=== PATIENT | female | born 2000 | race Hispanic/Latino ===

== ENCOUNTER 2018-01-07 12:01 | Emergency (ER) | payer OTHER, SELFPAY ==
[2018-01-07 12:43] LABS: Absolute Lymphocytes (CBC) 1.4 K/uL (0.7-4.9); Absolute Monocytes 0.4 K/uL (0.1-1.3); Absolute Neutrophil 6.2 K/uL (1.8-8.0); Basophils % 0.2 % (0-1.3); Eosinophils % 0.2 % (0-4.4); Hematocrit 37.6 % (36.0-45.0); Lymphocytes % 17.5 % (15.3-44.8); MCH 27.8 pg (27.0-35.0); MCV 81.2 fL (80-100); MPV 8.9 fL (7.6-11.3); Monocytes % 4.4 % (3.3-12.3); RBC Red Blood Cell Count 4.63 M/uL (3.86-4.86)
[2018-01-07 12:57] LABS: Bicarbonate 22 mEq/L (21-31); Glucose Level 95 mg/dL (65-120); Potassium 3.6 mEq/L (3.6-5.0); Sodium Level 132 mEq/L (135-145)
[2018-01-07 12:58] LABS: BUN Blood Urea Nitrogen 12 mg/dL (6-20)
[2018-01-07 13:23] LABS: Urine Blood NEGATIVE (NEG); Urine Glucose NEGATIVE (NEG); Urine Protein 2+ (NEG); Urine Specific Gravity 1.025 (1.005-1.030)
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
--- NOTE | 2018-01-07 14:31 | RAD REPORT ---
EXAM DESCRIPTION: US - Transvaginal OB - 01/07/2018 2:16 pm CLINICAL HISTORY: with abdominal pain and vaginal bleeding COMPARISON: None. FINDINGS: The uterus is measures 11 x 6 x 9 centimeters. A gestational sac is present within the e ndometrium. Within this is a yolk sac and pole with a crown-rump length 1.7 centimeters. Cardia c activity 165 beats per minute The ovaries are normal in size and echotexture. No significant free fluid is seen. IMPRESSION: Single live intrauterine with an estimated gestational age 8 weeks 0 days
[2018-01-07 14:38] VITALS: TEMP 97.9
[2018-01-07 14:40] VITALS: BP 110/73; O2SAT 100
== END 2018-01-07 14:33 | disposition home or self-care (01) ==
LOC: ER 12:01
DX: O26.891 Other specified pregnancy related conditions, first trimester (principal); Z3A.08 8 weeks gestation of pregnancy
CPT/HCPCS: 36415; 76817; 80048; 81003; 81025; 84702; 85025; 86900; 86901; 99284

== ENCOUNTER 2018-02-02 17:22 | Emergency (ER) | payer SELFPAY ==
[2018-02-02] MEDS ORDERED: ACT CHARCOAL/SORB 50 GM/240ML ONE ×2 (17:25→17:38)
[2018-02-02] MEDS ORDERED: NA CHLORIDE 0.9% 1,000 ML ONE ×2 (17:34→20:36)
[2018-02-02 17:57] LABS: Absolute Lymphocytes (CBC) 1.4 K/uL (0.7-4.9); Absolute Monocytes 0.4 K/uL (0.1-1.3); Basophils % 0.2 % (0-1.3); Eosinophils % 0.2 % (0-4.4); Lymphocytes % 12.9 % (15.3-44.8); MCH 28.9 pg (27.0-35.0); MCV 82.6 fL (80-100); MPV 8.7 fL (7.6-11.3); Monocytes % 3.8 % (3.3-12.3); RBC Red Blood Cell Count 4.24 M/uL (3.86-4.86)
--- NOTE | 2018-02-02 17:59 | EKG ---
Test Date: 2018-02-02 Test Time: 17:52:56 Auto Carrier Driver: ROSSI MEASUREMENT RESULTS: Intervals: Rate: 96 NV: 148 QRSD: 88 QT: 364 QTc: 459 Gore: P: 51 NV: 148 QRS: 47 T: 28 INTERPRETIVE STATEMENTS: Normal sinus rhythm Normal ECG Compared to ECG 01/19/2012 12:18:02 No significant changes Electronically Signed On 02-02-18 17:57:58 CDT by Yordy Cody
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
[2018-02-02 18:06] LABS: Protime INR 1.03
[2018-02-02 18:15] LABS: Bicarbonate 18 mEq/L (21-31); Glucose Level 94 mg/dL (65-120); Potassium 3.6 mEq/L (3.6-5.0); Sodium Level 133 mEq/L (135-145)
[2018-02-02 18:23] LABS: ALT/SGPT 18 IU/L (10-60); AST/SGOT 13 IU/L (10-42); Albumin 3.9 g/dL (3.2-5.5); Alkaline Phosphatase 47 IU/L (42-121); BUN Blood Urea Nitrogen 7 mg/dL (6-20); Bilirubin Direct 0.1 mg/dL (0-0.2); Bilirubin Total 0.6 mg/dL (0.3-1.2); Protein, Total 7.2 g/dL (6.0-8.3)
[2018-02-02 18:30] LABS: Salicylates Level < 4.0 mg/dl (<30)
[2018-02-02] MEDS ORDERED: LICE TREATMENT 1 APPL/120 ML BTL TOP ONE (18:30)
[2018-02-02 18:38] LABS: Alcohol Serum/Plasma < 10 mg/dl
[2018-02-02 19:00] LABS: Urine Blood NEGATIVE (NEG); Urine Glucose NEGATIVE (NEG); Urine Protein 1+ (NEG); Urine Specific Gravity 1.025 (1.005-1.030)
[2018-02-02] MEDS ORDERED: D5W IV ONE (19:00)
[2018-02-02] MEDS ORDERED: ACETYLCYSTEINE IV ONE ×2 (19:00→20:00)
[2018-02-02 19:01] LABS: Barbiturates NEGATIVE; Benzodiazepines NEGATIVE; Cocaine NEGATIVE; METHAMPHETAM NEGATIVE; Opiates NEGATIVE; Phencyclidine NEGATIVE; THC Cannibis POSITIVE
[2018-02-02] MEDS ORDERED: DEXTROSE 5% IV ONE (20:00)
[2018-02-02] MEDS ORDERED: WATER IV ONE (20:00)
--- NOTE | 2018-02-02 20:36 | RAD REPORT ---
EXAM DESCRIPTION: US - 1St Trimest Single 1St Fetus - 02/02/2018 7:13 pm CLINICAL HISTORY: with abdominal pain COMPARISON: None FINDINGS: The uterus measures 15 x 9 x 11 centimeters. A pole is present within the uterus with a crown-rump length 5.1 centimeters. Cardiac activity 150 beats per minute. The placenta is posterior. Initial images demonstrate a probable myometrial contraction. Partial plac enta previa is present. A 13 millimeter subchorionic bleed is suspected. IMPRESSION: Single live intrauterine with an estimated gestational age 11 weeks 5 days JANET 08/19/2018 Partial placenta previa. 13 millimeter subchorionic bleed is suspected. Follow-up ultrasound in approximately 6 weeks is recommended to reassess the placenta and perform a f etal survey
[2018-02-02 22:10] VITALS: TEMP 98.3
[2018-02-02 22:12] VITALS: BP 117/82; O2SAT 100
[2018-02-03] MEDS ORDERED: ACETYLCYSTEINE IV SCH (01:00)
[2018-02-03] MEDS ORDERED: D5W IV SCH (01:00)
== END 2018-02-02 22:05 | disposition short-term general hospital (02) ==
LOC: ER 17:22 → ERHOLD 18:21 → UNDOADMIN 18:21 → ER 22:05
DX: O9A.211 Injury, poisoning and certain other consequences of external causes complicating pregnancy, first trimester (principal); T39.1X2A Poisoning by 4-Aminophenol derivatives, intentional self-harm, initial encounter; Y92.9 Unspecified place or not applicable; O99.341 Other mental disorders complicating pregnancy, first trimester; F32.9 Major depressive disorder, single episode, unspecified; Z3A.11 11 weeks gestation of pregnancy
CPT/HCPCS: 36415; 76801; 80048; 80076; 80307; 80320; 80329; 81003; 81025; 84702; 85025; 85610; 86900; 86901; 93005; 96360; 96361; 99285; J0132; J7030; J7060

== ENCOUNTER 2019-12-17 03:45 | Emergency (ER) | payer OTHER, SELFPAY ==
[2019-12-17] MEDS ORDERED: NA CHLORIDE 0.9% 1,000 ML ONE ×2 (04:26→05:14)
[2019-12-17 04:34] LABS: Absolute Lymphocytes (CBC) 3.3 K/uL (0.7-4.9); Basophils % 0.5 % (0-1.3); Hematocrit 38.5 % (36.0-45.0); Lymphocytes % 36.4 % (15.3-44.8); MPV 8.9 fL (7.6-11.3); RBC Red Blood Cell Count 4.64 M/uL (3.86-4.86)
[2019-12-17 04:40] LABS: Urine Blood TRACE (NEG); Urine Glucose NEGATIVE (NEG); Urine Protein TRACE (NEG); Urine Specific Gravity >1.030 (1.005-1.030); Urine pH 5.5 (5.0-7.0)
[2019-12-17 04:45] LABS: Barbiturates NEGATIVE (NEGATIVE); Benzodiazepines NEGATIVE (NEGATIVE); Cocaine POSITIVE (NEGATIVE); METHAMPHETAM NEGATIVE (NEGATIVE); Methadone NEGATIVE (NEGATIVE); Opiates NEGATIVE (NEGATIVE); Phencyclidine NEGATIVE (NEGATIVE); THC Cannibis POSITIVE (NEGATIVE)
[2019-12-17 04:46] LABS: Protime INR 0.91
[2019-12-17 04:56] LABS: ALT/SGPT 47 U/L (12-78); AST/SGOT 13 U/L (15-37); Albumin 3.9 g/dL (3.4-5.0); Alkaline Phosphatase 78 U/L (45-117); BUN Blood Urea Nitrogen 13 mg/dL (7-18); Bicarbonate 25 mmol/L (21-32); Bilirubin Direct < 0.1 mg/dL (0-0.2); Bilirubin Total 0.2 mg/dL (0.2-1.0); Glucose Level 109 mg/dL (74-106); Potassium 3.9 mmol/L (3.5-5.1); Protein, Total 7.4 g/dL (6.4-8.2); Sodium Level 141 mmol/L (136-145)
[2019-12-17] MEDS ORDERED: LORAZEPAM 1 MG TABLET ONE (06:05)
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
--- NOTE | 2019-12-17 06:35 | ER ---
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 I ate brownies at the bar they said there's weed on it about 2 hours ago. 03:55 Coronavirus screen: The patient has NOT traveled to a country currently being monitored rr5 by the [facility] within the last 14 days. Proceed with normal triage procedures. Ebola Screen: Patient negative for fever greater than or equal to 101.5 degrees Fahrenheit, and additional compatible Ebola Virus Disease symptoms Patient denies exposure to infectious person. Patient denies travel to an Ebola-affected area in the 21 days before illness onset. Initial Sepsis Screen: Does the patient meet any 2 criteria? No. Patient's initial sepsis screen is negative. Does the patient have a suspected source of infection? No. Patient's initial sepsis screen is negative. Risk Assessment: Do you want to hurt yourself or someone else? Patient reports no desire to harm self or others. Onset of symptoms was December 17, 2019 at 02:00. 03:55 Method Of Arrival: Wheelchair rr5 03:55 Acuity: GAY 3 rr5 03:55 Note i ate brownies with weeds before but this one is different stated by the patient. 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 - Social history:: Smoking status: unknown Patient uses alcohol, Patient/guardian denies using street drugs. Screenin:15 Abuse screen: Denies threats or abuse. Denies injuries from another. Nutritional rr5 screening: No deficits noted. Tuberculosis screening: No symptoms or risk factors identified. Fall Risk IV access (20 points). Gait- Impaired (20 pts.). Total Steen Fall Scale indicates Low Risk Score (25-44 pts). Fall prevention measures have been instituted. Side Rails Up X 2 Placed close to Nursing Station Frequent Obs/Assesments occuring As available Patient and Family Educated on Fall Prevention Program and strategies. Assessment: 04:00 General: Appears in no apparent distress. uncomfortable, Behavior is cooperative, rr5 drowsy. Pain: Denies pain. Neuro: Level of Consciousness is awake, Oriented to person, place, time, situation, Reports i feel weird. 04:00 Cardiovascular: Capillary refill < 3 seconds Patient's skin is warm and dry. rr5 Cardiovascular: Rhythm is sinus tachycardia. Respiratory: Airway is patent Respiratory effort is even, unlabored, Respiratory pattern is regular. GI: No signs and/or symptoms were reported involving the gastrointestinal system. : No signs and/or symptoms were reported regarding the genitourinary system. EENT: Sclera/Cornea are reddened in outer aspect of conjuctiva of right eye, inner aspect of conjuctiva of right eye, outer aspect of conjuctiva of left eye and inner aspect of conjunctiva of left eye. Derm: Skin is intact, is healthy with good turgor, Skin temperature is warm. Musculoskeletal: Circulation, motion, and sensation intact. Capillary refill < 3 seconds. 05:13 Reassessment: Patient appears in no apparent distress at this time. BP 89/53 mmHg rr5 rechecked, ED provider aware with order made and carried out. photoresist contact printer number [facility] [phone]. 06:00 Reassessment: Patient appears in no apparent distress at this time. Patient and/or rr5 family updated on plan of care and expected duration. Pain level reassessed. Patient is alert, oriented x 3, equal unlabored respirations, skin warm/dry/pink. ED provider order for discharge once HR range 110 bpm. 06:28 Reassessment: Patient appears in no apparent distress at this time. Patient and/or rr5 family updated on plan of care and expected duration. Pain level reassessed. Patient is alert, oriented x 3, equal unlabored respirations, skin warm/dry/pink. call made to [facility] to arrange transport he replied he is on the way. 06:46 Reassessment: Patient appears in no apparent distress at this time. Patient is alert, rr5 oriented x 3, equal unlabored respirations, skin warm/dry/pink. commission auditor came, discharge instruction given and explained without complaints made. Vital Signs: 03:55 BP 119 / 67; Pulse 112; Resp 19; Temp 97.8; Pulse Ox 99% ; Weight 79.38 kg; Height 5 rr5 ft. 5 in. (165.10 cm); Pain 0/10; 04:42 BP 95 / 56; Pulse 91; Resp 16; Pulse Ox 99% on R/A; rr5 05:12 BP 89 / 53; Pulse 135; Resp 18; Temp 98; Pulse Ox 99% on R/A; rr5 05:23 BP 96 / 76; Pulse 113; Resp 17; Pulse Ox 99% on R/A; rr5 06:00 BP 121 / 79; Pulse 117; Resp 19; Pulse Ox 99% on R/A; rr5 06:25 BP 122 / 77; Pulse 95; Resp 16; Temp 97.5; Pulse Ox 100% ; rr5 03:55 Body Mass Index 29.12 (79.38 kg, 165.10 cm) rr5 ED Course: 03:48 Patient arrived in ED. es 03:57 Davonte Kruse, RN is Primary Nurse. rr5 04:00 Patient has correct armband on for positive identification. Placed in gown. Bed in low rr5 position. Call light in reach. Side rails up X2. telemetry monitor on. Pulse ox on. NIBP on. Warm blanket given. 04:02 Triage completed. rr5 04:02 Arm band placed on right wrist. EKG completed in triage. Results shown to MD. rr5 04:05 Quentin Hughes MD is Attending Physician. tw4 04:15 Urine collected: clean catch specimen, clear. rr5 04:20 No provider procedures requiring assistance completed. Inserted saline lock: 20 gauge rr5 in right forearm, using aseptic technique. Blood collected. 04:28 EKG done, by ED staff, reviewed by Quentin Hughes MD. rr5 06:47 IV discontinued, intact, bleeding controlled, No redness/swelling at site. Pressure rr5 dressing applied. Administered Medications: 04:20 Drug: NS 0.9% 1000 ml Route: IV; Rate: 1 bolus; Site: right antecubital; rr5 05:15 Follow up: Response: No adverse reaction; IV Status: Completed infusion; IV Intake: rr5 1000ml 06:04 Follow up: Response: No adverse reaction; IV Status: Completed infusion; IV Intake: rr5 1000ml 05:15 Drug: NS 0.9% 1000 ml Route: IV; Rate: 1 bolus; Site: right antecubital; rr5 06:15 Follow up: Response: No adverse reaction; IV Status: Completed infusion; IV Intake: rr5 1000ml 06:03 Drug: Ativan 1 mg Route: PO; rr5 06:48 Follow up: Response: No adverse reaction rr5 Intake: 05:15 IV: 1000ml; Total: 1000ml. rr5 06:04 IV: 1000ml; Total: 2000ml. rr5 06:15 IV: 1000ml; Total: 3000ml. rr5 06:04 voided rr5 Output: 06:04 Other: 1; Total: 0ml. rr5 06:04 voided rr5 Outcome: 06:35 Discharge ordered by . tw4 06:47 Discharged to home ambulatory, with family. rr5 06:47 Condition: stable 06:47 Discharge instructions given to patient, family, Instructed on discharge instructions, follow up and referral plans. Demonstrated understanding of instructions, follow-up care. 06:49 Patient left the ED. rr5 Signatures: Nathalie Fonseca Terrence, MD MD tw4 Davonte Kruse RN RN rr5 Corrections: (The following items were deleted from the chart) 06:39 06:25 BP 122 / 77; Pulse 95bpm; Resp 16bpm; Pulse Ox 100%; rr5 rr5
[2019-12-17 07:05] VITALS: BP 122/77; TEMP 97.5; O2SAT 100
--- NOTE | 2019-12-18 06:56 | EKG ---
Test Date: 2019-12-17 Test Time: 04:16:31 Wardrobe Stylist: RR MEASUREMENT RESULTS: Intervals: Rate: 112 MN: 150 QRSD: 84 QT: 322 QTc: 439 Imperial: P: 48 MN: 150 QRS: 54 T: -1 INTERPRETIVE STATEMENTS: Sinus tachycardia Cannot rule out Inferior infarct, age undetermined Abnormal ECG Compared to ECG 02/02/2018 17:52:56 Myocardial infarct finding now present Sinus rhythm no longer present Electronically Signed On 12-18-19 06:54:57 CDT by Doroteo Mcclelland
== END 2019-12-17 06:49 | disposition home or self-care (01) ==
LOC: ER 03:45
DX: F14.121 Cocaine abuse with intoxication with delirium (principal); F14.122 Cocaine abuse with intoxication with perceptual disturbance; F12.122 Cannabis abuse with intoxication with perceptual disturbance; R00.0 Tachycardia, unspecified
CPT/HCPCS: 96361; 93005; 85025; 80048; 36415; 80320; 80329 ×2; 81025; 85610; 80076; 80307 ×8; 85730; 81003; 96360; 99284; J7030 ×2

== ENCOUNTER 2020-01-07 03:33 | Emergency (ER) | payer OTHER ==
--- OUTSIDE RECORDS SUMMARY | 2020-01-07 03:36 | XMS REPORT ---
:2000 [facility] Address [facility] Dr. Cervantes [address] [place] [id number] Care Team Providers Name Role Phone Unavailable Unavailable Unavailable Problems This patient has no known problems. Allergies, Adverse Reactions, Alerts This patient has no known allergies or adverse reactions. Medications This patient has no known medications.
--- OUTSIDE RECORDS SUMMARY | 2020-01-07 03:37 | XMS REPORT | Summary of Care ---
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 CONTROL Encounter Details Date Type Department Care Team Description 12/22/2019 Office Visit [facility]- Mary Dacosta, Encounter for Nexplanon removal (Primary Dx); [facility] Encounter for initial prescription of injectable contraceptive [address] [place], [place] [address] [place], [place] [address] Allergies No Known Allergiesdocumented as of this encounter (statuses as of 12/22/2019) Medications Hospital, Clinic, or Other Ordered Dose Route Frequency Start Date End Date Status Facility Administered Medication medroxyPROGESTERone 150 mg IM [id number] 12/22/2019 08/30/2020 Active (DEPO-PROVERA) injection 150 mgIndications: Encounter for initial prescription of injectable contraceptive documented as of this encounter (statuses as of 12/22/2019) Active Problems Problem Noted Date Multiparity 01/01/2016 Family history of Down syndrome 01/01/2016 Overview: Patient sister has down syndrome History of asthma 01/01/2016 Overview: As a child History of seizure 01/01/2016 Overview: As a child <10yrs ago documented as of this encounter (statuses as of 12/22/2019) Resolved Problems Problem Noted Date Resolved Date 39 weeks gestation of 08/09/2018 12/30/2018 Insufficient care in third trimester 08/09/2018 12/30/2018 Group B Streptococcus carrier, antepartum 08/09/2018 12/30/2018 Liveborn , of [place] , born in hospital by 08/09/201812/30 vaginal delivery Late care 07/11/2018 08/09/2018 Abnormal maternal glucose tolerance, antepartum 06/16/2018 08/09/2018 Placenta previa without hemorrhage, antepartum 06/15/2018 08/09/2018 Inmate in correctional facility 06/15/2018 08/09/2018 Overweight (BMI 25.0-29.9) 06/15/2018 08/09/2018 Overdose by acetaminophen, intentional self-harm, sequela 02/03/20182017 Suicide attempt 02/03/2018 06/15/2018 Lice 02/03/2018 06/15/2018 12 weeks gestation of 02/03/2018 06/15/2018 Obesity (BMI 30-39.9) 09/21/2017 06/15/2018 Normal labor 04/02/2016 12/30/2018 39 weeks gestation of 04/02/2016 06/15/2018 Group B Streptococcus carrier, antepartum 04/02/2016 03/10/2017 Liveborn by vaginal delivery 04/02/2016 06/15/2018 Susceptible to varicella (non-immune), currently 01/02/20162017 Overview: needs PP Supervision of high-risk with insufficient 01/01/201609/2018 care Obesity affecting 01/01/2016 12/30/2018 Pain of round ligament affecting , antepartum 01/01/2016 06/15/2018 documented as of this encounter (statuses as of 12/22/2019) Immunizations Name Administration Dates Next Due Influenza Virus Vaccine Quad IM 3+ YRS 01/01/2016 PPD (TB) 10/21/2011 Tdap 02/07/2016 documented as of this encounter Social History Tobacco Use Types Packs/Day Years Used Date Never Smoker Smokeless Tobacco: Never Used Alcohol Use Drinks/Week oz/Week Comments No 0 Standard drinks or equivalent 0.0 Sex Assigned at Date Recorded Not on file Job Start Date Occupation Industry Not on file Not on file Not on file Travel History Travel Start Travel End No recent travel history available. documented as of this encounter Last Filed Vital Signs Vital Sign Reading Time Taken Comments Blood Pressure 111/68 12/22/2019 2:47 PM CDT Pulse 68 12/22/2019 2:47 PM CDT Temperature 36.8 C (98.2 F) 12/22/2019 2:47 PM CDT Respiratory Rate 16 12/22/2019 2:47 PM CDT Oxygen Saturation - - Inhaled Oxygen Concentration - - Weight 81 kg (178 lb 8 oz) 12/22/2019 2:47 PM CDT Height 165.1 cm (5' 5") 12/22/2019 2:47 PM CDT Body Mass Index 29.7 12/22/2019 2:47 PM CDT documented in this encounter Progress Notes Keya Serrano RN - 12/22/2019 3:00 PM CDTPatient present in clinic for nexplanon removal. Consent obtained and signed by patient. Educated patient on ER warnings. Patient verbalized understanding. Patient desires Depo contraception management at this time. Keya Aguilar RN - 12/22/2019 3:00 PM CDT19 year old female has been identified by and name. Verbal consent has been obtained by patientto have an injection of Depo Provera, as ordered by the provider. Date of last Depo Provera injection: initial Last WWE: 01/20/2019 Encounter Diagnosis: v25.49 The site was cleaned with an alcohol swab and given intramuscularly (IM) in the right deltoid. A band aid dressing was then applied to the injection site. The patient tolerated the procedure well , no rash, swelling or reaction noted. Advised patient on Calcium intake 500-1200 mg daily. Pt to use back up control method for 2 weeks. ED warnings given. Patient to return to clinic in 12 weeks for next Depo and WWE. Patient verbalized understanding. KEYA SERRANO RN 12/22/2019 3:12 PM Mary Gustafson FNP - 12/22/2019 3:00 PM CDTNexplanon REMOVAL PROCEDURE NOTE Pt desires Nexplanon removal d/t having periods for 2 weeks every month and breakthrough bleeding. She declines trial of estradiol and requests nexplanon removal. Plans to use depo for contraception Preoperative Diagnoses: Nexplanon Removal I discussed the likelihood of success with Nexplanon removal procedure during the consent process with the patient. Staff present for procedure: Mario NOVAK and Adama Serrano RN Pt reports no past or present history of physical, sexual, and emotional abuse. The risks, benefits and alternatives were discussed. The patient voiced her understanding. She wished to proceed and an informed consent was obtained. Patient has been identified by name and and will be undergoing Nexplanon removal. Patient is right handed. Patient, procedure and site have been confirmed by the following clinicians: Mario King and Adama Serrano RN. Timeout performed by Mario NOVAK and Adama Serrano RN immediately prior to the procedure. Procedure: The patient is placed on the exam table in a supine position. The implant was palpated onthe inner aspect of the left arm. The Nexplanon implant site is prepped with Betadine. Local area isinjected subcutaneously with 2 cc of lidocaine 1% without epinephrine along the planned incision site. A small incision is made with a sterile scalpel. Straight hemostat is used to access the implant through the incision site. The implant is secured with the hemostat and carefully removed through theincision. There is minimal bleeding from the incision site. Sterile gauze and a pressure dressing is placed over the removal site. The patient tolerated the procedure well and there were no complications. Post-procedure instructions given. Patient verbalized understanding. Staff present for procedure: RAYMOND Mina and Adama Serrano RN. Findings None Assessment Nexplanon Removed Plan Encounter for Nexplanon removal (primary encounter diagnosis) Comment: Plan: Encounter for initial prescription of injectable contraceptive Comment: D/w pt at length various BCMs including OCPs, Patch, Depo Provera, vaginal rings, condoms, implants and iuds. We discussed the risk/benefits/side effects of each. After discussion, pt desires to proceed with depo. UPT negative today, depo given Plan: POCT TEST, medroxyPROGESTERone (DEPO-PROVERA) injection 150 mg RTC in 3 months for 2nd depo injection and WWE Patient visualized removed Nexplanon. documented in this encounter Plan of Treatment Date Type Specialty Care Team Description 03/25/2020 Office Visit [facility] Eliza [facility], [facility] [address] [place] [address] [phone] Health Maintenance Due Date Last Done Comments CHLAMYDIA SCREENING 01/21/2020 01/20/2019, 06/15/2018, 01/01/2016, Additional history exists HPV VACCINES (1 - Female 02/01/2020 Postponed from 2-dose series) 2009 (Refused) PAP SMEAR 02/01/2020 Postponed from 2019 (Refused) INFLUENZA VACCINE (#1) 2020 01/01/2016 Postponed from 06/04/2019 (Refused) DTaP,Tdap,and Td Vaccines 02/06/2026 02/07/2016 (2 - Td) MENINGOCOCCAL B VACCINES Discontinued MENINGOCOCCAL VACCINE Aged Out No longer eligible based on patient's age to complete this topic PNEUMOCOCCAL 0-64 YEARS Aged Out No longer eligible COMBINED SERIES based on patient's age to complete this topic VARICELLA VACCINES Discontinued [facility] CARE VISIT: 12-21 Discontinued YEARS (yearly) documented as of this encounter Procedures Procedure Name Priority Date/Time Associated Diagnosis Comments POCT Routine 12/22/2019 2:54 Encounter for initial Results for this TEST PM CDT prescription of procedure are in injectable the results contraceptive section. documented in this encounter Results POCT TEST (12/22/2019 2:54 PM CDT) POCT PREG Negative On board controls acceptable Yes with C Line POCT PREG LOT # POCT PREG TEST DATE Specimen Urine - URINE, CLEAN CATCH documented in this encounter Visit Diagnoses Diagnosis Encounter for Nexplanon removal - Primary Surveillance of previously prescribed implantable subdermal contraceptive Encounter for initial prescription of injectable contraceptive General counseling for initiation of other contraceptive measures documented in this encounter Administered Medications Medication Order MAR Action Action Date Dose Rate Site medroxyPROGESTERone Given 12/22/2019 3:12 150 mg Right (DEPO-PROVERA) injection 150 PM CDT Deltoid-IM mg 150 mg, Intramuscular, [id number], 3 doses, First dose on Wed12/22/19 at 1500, Last dose on Wed06/07/20 at 1500, Routine documented in this encounter Insurance Payer Benefit Plan / Subscriber ID Effective Phone Address Type Group Dates [facility] xxxxxxxxx 2019-Matthieu [place] Medicaid HEALTH CHOICE - HEALTH CHOICE [id number] MANAGED MEDICAID [place], [place] [phone] documented as of this encounter Advance Directives Name Relationship Healthcare Agent Relationship Communication Lou Onofre Mother Primary healthcare agent
--- OUTSIDE RECORDS SUMMARY | 2020-01-07 03:37 | XMS REPORT | Summary of Care ---
:2000 Author Organization [facility] Address [address] [place] [address] Care Team Providers Name Role Phone Mary Dacosta [employer] Primary Care Provider Reason for Visit Reason Comments Appointment b/c removal Encounter Details Date Type Department Care Team Description 12/15/2019 Telephone [facility]- Mary Dacosta, Appointment [facility] ) [address] [place], [place] [address] [place] [address] [phone] Allergies No Known Allergiesdocumented as of this encounter (statuses as of 12/15/2019) Medications No known medicationsdocumented as of this encounter (statuses as of 12/15/2019) Active Problems Problem Noted Date Multiparity 01/01/2016 Family history of Down syndrome 01/01/2016 Overview: Patient sister has down syndrome History of asthma 01/01/2016 Overview: As a child History of seizure 01/01/2016 Overview: As a child <10yrs ago documented as of this encounter (statuses as of 12/15/2019) Resolved Problems Problem Noted Date Resolved Date [...] B Streptococcus carrier, antepartum 04/02/2016 03/10/2017 Liveborn infant by vaginal delivery 04/02/2016 06/15/2018 Susceptible to varicella (non-immune), currently 01/02/20162017 Overview: needs PP Supervision of high-risk with insufficient 01/01/201609/2018 care Obesity affecting 01/01/2016 12/30/2018 Pain of round ligament affecting , antepartum 01/01/2016 06/15/2018 documented as of this encounter (statuses as of 12/15/2019) Immunizations Name Administration Dates Next Due Influenza [...] of this encounter Last Filed Vital Signs Not on filedocumented in this encounter Plan of Treatment Date Type Specialty Care Team Description 12/22/2019 Office Visit [facility] Mary Dacosta, [employer]FIREMAN [address] [place] [address] [phone] Health Maintenance Due Date Last Done Comments VARICELLA VACCINES (1 of 2 - 1999 2-dose childhood series) MENINGOCOCCAL B VACCINES (1 2008 of 2 - Risk Bexsero 2-dose series) HPV VACCINES (1 - Female 2009 2-dose series) WELL CARE VISIT: 12-21 YEARS 2010 (yearly) INFLUENZA VACCINE (#1) 2019 01/01/2016 PAP SMEAR 2019 CHLAMYDIA SCREENING 01/21/2020 01/20/2019, 06/15/2018, 01/01/2016, Additional history exists DTaP,Tdap,and Td Vaccines (2 02/06/2026 02/07/2016 - Td) MENINGOCOCCAL VACCINE Aged Out No longer eligible based on patient's age to complete this topic PNEUMOCOCCAL 0-64 YEARS Aged Out No longer eligible COMBINED SERIES based on patient's age to complete this topic documented as of this encounter Results Not on filedocumented in this encounter Insurance Payer Benefit Plan / Subscriber ID Effective Dates Phone Address Type Group [employer] MEDICAID OF xxxxxxxxx 2018-Present [phone] [place] [address] [place] [address] documented as of this encounter Advance Directives Name Relationship Healthcare Agent Relationship Communication Lou Onofre Mother Primary healthcare agent
--- OUTSIDE RECORDS SUMMARY | 2020-01-07 03:37 | XMS REPORT | Summary of Care ---
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 Encounter Details Date Type Department Care Team Description 12/22/2019 Office Visit [facility]- Mary Dacosta, Encounter for Nexplanon removal (Primary Dx); [facility] Encounter for initial prescription of injectable contraceptive [address] [place], [place] [address] [place], [place] [address] Allergies No Known Allergiesdocumented as of this encounter (statuses as of 12/22/2019) Medications Hospital, Clinic, or Other Ordered Dose Route Frequency Start Date End Date Status Facility Administered Medication medroxyPROGESTERone 150 mg IM [id number] 12/22/2019 08/30/2020 Active (DEPO-PROVERA) injection 150 mgIndications: [...] Office Visit [facility] [address] [place] [address] [phone] Health Maintenance Due Date Last Done Comments [...] to complete this topic VARICELLA VACCINES Discontinued [facility] CARE VISIT: 12-21 Discontinued YEARS (yearly) documented [...] PM CDT Deltoid-IM mg 150 mg, Intramuscular, [id number], 3 doses, First dose on Wed12/22/19 at 1500, Last dose on Wed06/07/20 at 1500, Routine documented in this encounter Insurance Payer Benefit Plan / Subscriber ID Effective Phone Address Type Group Dates [facility] xxxxxxxxx 2019-Matthieu [place] Medicaid HEALTH CHOICE - HEALTH CHOICE [id number] MANAGED MEDICAID [place], [place] MED[place] [phone] documented as of this encounter Advance Directives Name Relationship Healthcare Agent Relationship Communication Lou Onofre Mother Primary healthcare agent
--- OUTSIDE RECORDS SUMMARY | 2020-01-07 03:38 | XMS REPORT | Summary of Care ---
:2000 Author Organization [facility] - Health Address [address] [place] [address] Care Team Providers Name Role Phone Mary Dacosta Primary Care Provider Encounter Details Date Type Department Care Team Description 12/22/2019 Orders Only [facility] Doctor Unassigned, No [address] [facility] [place] [address] [address] [place] [address] Allergies No Known Allergiesdocumented as of this encounter (statuses as of 12/28/2019) Medications Hospital, Clinic, or Other Ordered Dose Route Frequency Start Date End Date Status Facility Administered Medication medroxyPROGESTERone 150 mg IM [id number] 12/22/2019 08/30/2020 Active (DEPO-PROVERA) injection 150 mgIndications: Encounter for initial prescription of injectable contraceptive documented as of this encounter (statuses as of 12/28/2019) Active Problems Problem Noted Date Multiparity 01/01/2016 Family history of Down syndrome 01/01/2016 Overview: Patient sister has down syndrome History of asthma 01/01/2016 Overview: As a child History of seizure 01/01/2016 Overview: As a child <10yrs ago documented as of this encounter (statuses as of 12/28/2019) Resolved Problems Problem Noted Date Resolved Date 39 weeks gestation of 08/09/2018 12/30/2018 Insufficient care in third trimester 08/09/2018 12/30/2018 Group B Streptococcus carrier, antepartum 08/09/2018 12/30/2018 Liveborn infant, of [place] , born in hospital by [...] as of this encounter (statuses as of 12/28/2019) Immunizations Name Administration Dates Next Due Influenza [...] Team Description 03/25/2020 Office Visit [facility]ell[facility] Eliza Candelario, WHCNP [address] [place] [address] [phone] Health Maintenance Due Date Last Done Comments [...] to complete this topic VARICELLA VACCINES Discontinued WELL CARE VISIT: 12-21 Discontinued YEARS (yearly) documented as of this encounter Procedures Procedure Name Priority Date/Time Associated Diagnosis Comments DISCLOSURE AND CONSENT, Routine 12/22/2019 12:01 AM MEDICAL AND SURGICAL CDT PROCEDURES documented in this encounter Results Not on filedocumented in this encounter Insurance Payer Benefit Plan / Subscriber ID Effective Phone Address Type Group Dates [employer] xxxxxxxxx 2019-Prese [address] Medicaid HEALTH CHOICE [facility] nt [id number] - MANAGED MEDICAID [place] [id number] [facility] MEDICAID OF xxxxxxxxx 2018-Prese [phone] Medicaid [place] [id number] [place] [address] documented as of this encounter Advance Directives Name Relationship Healthcare Agent Relationship Communication Lou Onofre Mother Primary healthcare agent
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
[2020-01-07] MEDS ORDERED: IBUPROFEN 400 MG TAB ONE (04:11)
[2020-01-07 05:34] VITALS: TEMP 98.2
[2020-01-07 05:35] VITALS: BP 136/87; O2SAT 99
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
== END 2020-01-07 05:26 | disposition home or self-care (01) ==
LOC: ER 03:33
DX: S00.93XA Contusion of unspecified part of head, initial encounter (principal); Y04.2XXA Assault by strike against or bumped into by another person, initial encounter; Y93.9 Activity, unspecified; Y92.9 Unspecified place or not applicable
CPT/HCPCS: 99284

== ENCOUNTER 2022-12-12 16:12 | Emergency (ER) | payer OTHER ==
--- OUTSIDE RECORDS SUMMARY | 2022-12-12 16:20 | XMS REPORT | Continuity of Care Document ---
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 University of 00:00:00 [facility] TDAP 2016-02-07 Completed University of 00:00:00 [facility] TDAP 2016-02-07 Completed University of 00:00:00 [facility] TDAP 2016-02-07 Completed University of 00:00:00 [facility] TDAP 2016-02-07 Completed University of 00:00:00 [facility] TDAP 2016-02-07 Completed [facility] of 00:00:00 [facility] TDAP 2016-02-07 Completed University of 00:00:00 [facility] TDAP 2016-02-07 Completed University of 00:00:00 [facility] TDAP 2016-02-07 Completed University of 00:00:00 [facility] TDAP 2016-02-07 Completed University of 00:00:00 [facility] Tdap 2016-02-07 Completed University of 00:00:00 [facility] Influenza Virus 2016-01-01 Completed Universit y of Vaccine [facility] IM 3+ 00:00:00 [facility] Influenza Virus 2016-01-01 Completed Universit y of [facility] IM 3+ 00:00:00 [facility] Influenza Virus 2016-01-01 Completed Universit y of [facility] IM 3+ 00:00:00 [facility] Influenza Virus 2016-01-01 Completed Universit y of [facility] IM 3+ 00:00:00 [facility] Influenza Virus 2016-01-01 Completed Universit y of [facility] 3+ 00:00:00 [facility] Influenza Virus 2016-01-01 Completed Universit y of [facility] 3+ 00:00:00 [facility] Influenza Virus 2016-01-01 Completed Universit y of [facility] IM 3+ 00:00:00 [facility] Influenza Virus 2016-01-01 Completed Universit y of [facility] IM 3+ 00:00:00 [facility] Influenza Virus 2016-01-01 Completed Universit y of [facility] IM 3+ 00:00:00 [facility] Influenza Virus 2016-01-01 Completed Universit y of [facility] IM 3+ 00:00:00 [facility] Influenza Virus 2016-01-01 Completed Universit y of [facility] IM 3+ 00:00:00 [facility] Influenza Virus 2016-01-01 Completed Universit y of [facility] IM 3+ 00:00:00 [facility] Influenza Virus 2016-01-01 Completed Universit y of [facility] IM 3+ 00:00:00 [facility] Influenza Virus 2016-01-01 Completed Universit y of [facility] 3+ 00:00:00 [facility] Influenza Virus 2016-01-01 Completed Universit y of [facility] 3+ 00:00:00 [facility] Influenza Virus 2016-01-01 Completed Universit y of [facility] IM 3+ 00:00:00 [facility] Influenza Virus 2016-01-01 Completed Universit y of [facility] 3+ 00:00:00 [facility] Influenza Virus 2016-01-01 Completed Universit y of [facility] 3+ 00:00:00 [facility] Influenza Virus 2016-01-01 Completed Universit y of [facility] IM 3+ 00:00:00 [facility] Influenza Virus 2016-01-01 Completed Universit y of [facility] 3+ 00:00:00 [facility] Influenza Virus 2016-01-01 Completed Universit y of [facility] IM 3+ 00:00:00 [facility] Influenza Virus 2016-01-01 Completed Universit y of [facility] 3+ 00:00:00 [facility] Influenza Virus 2016-01-01 Completed Universit y of [facility] IM 3+ 00:00:00 [facility] Influenza Virus 2016-01-01 Completed Universit y of [facility] IM 3+ 00:00:00 [facility] Influenza Virus 2016-01-01 Completed Universit y of [facility] IM 3+ 00:00:00 [facility] Influenza Virus 2016-01-01 Completed Universit y of [facility] IM 3+ 00:00:00 [facility] Influenza Virus 2016-01-01 Completed Universit y of [facility] IM 3+ 00:00:00 [facility] Influenza Virus 2016-01-01 Completed Universit y of [facility] IM 3+ 00:00:00 [facility] Influenza Virus 2016-01-01 Completed Universit y of [facility] 3+ 00:00:00 [facility] Influenza Virus 2016-01-01 Completed Universit y of [facility] IM 3+ 00:00:00 [facility] Influenza Virus 2016-01-01 Completed Universit y of [facility] 3+ 00:00:00 [facility] Influenza Virus 2016-01-01 Completed Universit y of [facility] 3+ 00:00:00 [facility] Influenza Virus 2016-01-01 Completed Universit y of [facility] 3+ 00:00:00 [facility] Influenza Virus 2016-01-01 Completed Universit y of [facility] 3+ 00:00:00 [facility] Influenza Virus 2016-01-01 Completed Universit y of [facility] 3+ 00:00:00 [facility] Influenza Virus 2016-01-01 Completed Universit y of [facility] IM 3+ 00:00:00 [facility] Influenza Virus 2016-01-01 Completed Universit y of [facility] IM 3+ 00:00:00 [facility] Influenza Virus 2016-01-01 Completed Universit y of [facility] IM 3+ 00:00:00 [facility] Influenza Virus 2016-01-01 Completed Universit y of [facility] IM 3+ 00:00:00 [facility] PPD (TB) 2011-10-21 Completed University of 00:00:00 [facility] PPD (TB) 2011-10-21 Completed University of 00:00:00 [facility] PPD (TB) 2011-10-21 Completed University of 00:00:00 [facility] PPD (TB) 2011-10-21 Completed University of 00:00:00 [facility] PPD (TB) 2011-10-21 Completed University of 00:00:00 [facility] PPD (TB) 2011-10-21 Completed University of 00:00:00 [facility] PPD (TB) 2011-10-21 Completed University of 00:00:00 [facility] PPD (TB) 2011-10-21 Completed University of 00:00:00 [facility] PPD (TB) 2011-10-21 Completed University of 00:00:00 [facility] PPD (TB) 2011-10-21 Completed University of 00:00:00 [facility] PPD (TB) 2011-10-21 Completed University of 00:00:00 [facility] PPD (TB) 2011-10-21 Completed University of 00:00:00 [facility] PPD (TB) 2011-10-21 Completed [facility] of 00:00:00 [facility] PPD (TB) 2011-10-21 Completed University of 00:00:00 [facility] PPD (TB) 2011-10-21 Completed University of 00:00:00 [facility] PPD (TB) 2011-10-21 Completed University of 00:00:00 [facility] PPD (TB) 2011-10-21 Completed University of 00:00:00 [facility] PPD (TB) 2011-10-21 Completed University of 00:00:00 [facility] PPD (TB) 2011-10-21 Completed [facility] of 00:00:00 [facility] PPD (TB) 2011-10-21 Completed [facility] of 00:00:00 [facility] PPD (TB) 2011-10-21 Completed [facility] of 00:00:00 [facility] PPD (TB) 2011-10-21 Completed [facility] of 00:00:00 [facility] PPD (TB) 2011-10-21 Completed University of 00:00:00 [facility] PPD (TB) 2011-10-21 Completed University of 00:00:00 [facility] PPD (TB) 2011-10-21 Completed University of 00:00:00 [facility] PPD (TB) 2011-10-21 Completed [facility] of 00:00:00 [facility] PPD (TB) 2011-10-21 Completed University of 00:00:00 [facility] PPD (TB) 2011-10-21 Completed University of 00:00:00 [facility] PPD (TB) 2011-10-21 Completed University of 00:00:00 [facility] PPD (TB) 2011-10-21 Completed University of 00:00:00 [facility] PPD (TB) 2011-10-21 Completed [facility] of 00:00:00 [facility] PPD (TB) 2011-10-21 Completed University of 00:00:00 [facility] PPD (TB) 2011-10-21 Completed University of 00:00:00 [facility] PPD (TB) 2011-10-21 Completed [facility] of 00:00:00 [facility] PPD (TB) 2011-10-21 Completed University of 00:00:00 [facility] PPD (TB) 2011-10-21 Completed University of 00:00:00 [facility] PPD (TB) 2011-10-21 Completed University of 00:00:00 [facility] PPD (TB) 2011-10-21 Completed [facility] of 00:00:00 [facility] PPD (TB) 2011-10-21 Completed [facility] of 00:00:00 [facility] Vital Signs Vital Name Observation Time Observation Value Comments Source Systolic blood 2021-06-05 20:31:00 124 mm[Hg] Univer sity of pressure [facility] Diastolic blood 2021-06-05 20:31:00 88 mm[Hg] Unive rsity of [facility] Heart rate 2021-06-05 20:31:00 117 /min [facility] Body temperature 2021-06-05 20:31:[address] [facility] Respiratory rate 2021-06-05 20:31:00 18 /min [facility] Body height 2021-06-05 20:31:00 167.6 cm [facility] Body weight 2021-06-05 20:31:00 83.519 kg [facility] BMI 2021-06-05 20:31:00 29.72 kg/m2 [facility] Systolic blood 2021-05-21 15:20:00 117 mm[Hg] Univer sity of pressure [facility] Diastolic blood 2021-05-21 15:20:00 78 mm[Hg] Unive rsity of pressure [facility] Heart rate 2021-05-21 15:20:00 87 /min [facility] Body temperature 2021-05-21 15:20:00 37.06 Aileen [facility] Respiratory rate 2021-05-21 15:20:00 18 /min Univ ers[facility] Body height 2021-05-21 15:20:00 167.6 cm [facility] Body weight 2021-05-21 15:20:00 84.993 kg [facility] BMI 2021-05-21 15:20:00 30.24 kg/m2 [facility] Systolic blood 2021-03-21 18:13:00 118 mm[Hg] Univer sity of pressure [facility] Diastolic blood 2021-03-21 18:13:00 80 mm[Hg] Unive rsity of pressure [facility] Heart rate 2021-03-21 18:13:00 75 /min [facility] Body temperature 2021-03-21 18:13:00 36.94 Aileen [facility] Respiratory rate 2021-03-21 18:13:00 16 /min Univ [facility] Body height 2021-03-21 18:13:00 165.1 cm [facility] Body weight 2021-03-21 18:13:00 85.73 kg [facility] BMI 2021-03-21 18:13:00 31.45 kg/m2 [facility] Systolic blood 2020-12-27 13:33:00 125 mm[Hg] Univer sity of pressure [facility] Diastolic blood 2020-12-27 13:33:00 89 mm[Hg] Unive rsity of pressure [facility] Heart rate 2020-12-27 13:33:00 98 /min [facility] Body temperature 2020-12-27 13:33:00 36.72 Aileen [facility] Respiratory rate 2020-12-27 13:33:00 16 /min Univ [facility] Body height 2020-12-27 13:33:00 165.1 cm [facility] Body weight 2020-12-27 13:33:00 79.062 kg [facility] BMI 2020-12-27 13:33:00 29.01 kg/m2 [facility] Systolic blood 2020-06-26 20:45:00 123 mm[Hg] Univer sity of pressure [facility] Diastolic blood 2020-06-26 20:45:00 73 mm[Hg] Unive rsity of pressure [facility] Heart rate 2020-06-26 20:45:00 81 /min [facility] Body temperature 2020-06-26 20:45:00 36.17 Aileen [facility] Respiratory rate 2020-06-26 20:45:00 16 /min Univ [facility] Body height 2020-06-26 20:45:00 165.1 cm [facility] Body weight 2020-06-26 20:45:00 84.369 kg [facility] BMI 2020-06-26 20:45:00 30.95 kg/m2 [facility] Systolic blood 2020-05-13 15:17:00 118 mm[Hg] Univer sity of pressure [facility] Diastolic blood 2020-05-13 15:17:00 89 mm[Hg] Unive rsity of pressure [facility] Heart rate 2020-05-13 15:17:00 86 /min [facility] Body temperature 2020-05-13 15:17:00 36.72 Aileen [facility] Respiratory rate 2020-05-13 15:17:00 16 /min Univ [facility] Body height 2020-05-13 15:17:00 165.1 cm [facility] Body weight 2020-05-13 15:17:00 84.029 kg [facility] BMI 2020-05-13 15:17:00 30.83 kg/m2 [facility] Systolic blood 2020-04-02 18:31:00 109 mm[Hg] Univer sity of pressure [facility] Diastolic blood 2020-04-02 18:31:00 68 mm[Hg] Unive rsity of pressure [facility] Heart rate 2020-04-02 18:31:00 67 /min [facility] Body temperature 2020-04-02 18:31:00 37.11 Aileen [facility] Respiratory rate 2020-04-02 18:31:00 16 /min Univ ersity of [facility] Body height 2020-04-02 18:31:00 165.1 cm Universi ty of [facility] Body weight 2020-04-02 18:31:00 83.519 kg Universi ty of [facility] BMI 2020-04-02 18:31:00 30.64 kg/m2 Universi ty [facility] Systolic blood 2019-12-22 19:47:00 111 mm[Hg] Univer sity of pressure [facility] Diastolic blood 2019-12-22 19:47:00 68 mm[Hg] Unive rsity of pressure [facility] Heart rate 2019-12-22 19:47:00 68 /min Universi ty of [facility] Body temperature 2019-12-22 19:47:00 36.78 Aileen [facility] 2019-12-22 19:47:00 16 /min [facility] Body height 2019-12-22 19:47:00 165.1 cm Universi ty [facility] Body weight 2019-12-22 19:47:00 80.967 kg Universi ty [facility] BMI 2019-12-22 19:47:00 29.70 kg/m2 Universi ty [facility] Respitory Rate 2017-12-16 09:00:00 [place] Systolic (mm Hg) 2017-12-16 09:00:00 Fadi rial [place] Diastolic (mm Hg) 2017-12-16 09:00:00 Mem orial [place] Respitory Rate 2017-12-16 08:00:00 Memori al [place] Systolic (mm Hg) 2017-12-16 08:00:00 Fadi rial [place] Diastolic (mm Hg) 2017-12-16 08:00:00 Mem orial [place] Respitory Rate 2017-12-16 07:00:00 Memori al [place] Systolic (mm Hg) 2017-12-16 07:00:00 Fadi rial [place] Diastolic (mm Hg) 2017-12-16 07:00:00 Mem orial [place] Heart Rate 2017-12-16 05:07:00 [facility] Procedure Date / Time Performing Clinician Source Performed POCT TEST 2021-06-05 20:34:00 Mary Conklin [facility] CONSENT FOR 2021-06-05 05:01:00 Doctor Unassigned, No [facility] CONTRACEPTION [facility] POCT TEST 2021-05-21 15:27:00 Mary Conklin [facility] POCT URINALYSIS W/O 2021-05-21 15:27:00 Mary Conklin [facility] ASSIGNMENT OF BENEFITS 2021-05-21 15:08:25 Doctor Unassigned, No [facility] POCT TEST 2020-12-27 13:34:00 [facility]OTAL BETA HCG ASSAY 2020-06-26 21:10:[address] [facility] POCT TEST 2020-06-26 00:00:00 Suresh Riley [facility] POCT URINALYSIS W/O 2020-05-13 15:11:00 Eliza Candelario Uni versity of [facility] POCT TEST 2020-05-13 15:09:00 [facility] URINALYSIS W/O 2020-05-13 15:09:00 [facility] CONSENT/REFUSAL FOR 2020-04-02 18:45:55 Doctor Unassigned, No [facility] DIAGNOSIS AND TREATMENT [facility] ASSIGNMENT OF BENEFITS 2020-04-02 18:45:38 Doctor Unassigned, No [facility] POCT TEST 2020-04-02 18:32:00 Mary Conklin [facility] POCT TEST 2019-12-22 19:54:00 Mary Conklin [facility] DISCLOSURE AND CONSENT, 2019-12-22 05:01:00 Doctor Unassigned, N o [facility] MEDICAL AND SURGICAL [facility] PROCEDURES Encounters Start End Encounter Admission Attending Care Care Encounter Source Date/Time Date/Time Type Type Clinicians Facility Department ID 2021-09-02 2021-09-02 Outpatient R [facility] [id number] Univers 15:15:00 15:15:00 MARY melchor [facility] 2021-06-10 2021-06-10 Outpatient R [facility] [id number] Univers 15:00:00 15:00:00 itgracy [facility] 2021-06-05 2021-06-05 Office [facility] [id number] Univers 15:18:18 15:55:57 Visit Mary N [employer] [id number] it y of REGIONAL [id number] Reji as MATERNAL [id number] [facility] & CHILD [address] [place] [address] 2021-06-05 2021-06-05 Outpatient R [facility] [id number] Univers 15:30:00 15:30:00 MARY melchor [facility] 2021-06-05 2021-06-05 Orders Doctor GARVIN [id number] Univers 00:00:00 00:00:00 Only Unassigned, GINA [id number] ity of [facility] [id number] Reji as [id number] [address] 2021-05-21 2021-05-21 Office [facility] [id number] Univers 10:09:31 10:50:07 Visit Mary Ames [employer] [id number] it y of REGIONAL [id number] Reji as MATERNAL [id number] [facility] & [address] 2021-05-21 2021-05-21 Outpatient R [facility] [id number] Univers 10:15:00 10:15:00 MARY melchor [facility] 2021-05-21 2021-05-21 Orders Doctor VIRGIE [id number] Univers 00:00:00 00:00:00 Only Unassigned, GINA [id number] ity of [place] [facility] [id number] Reji as [id number] [address] 2021-03-21 2021-03-21 Outpatient R [facility] [id number] Univers 13:30:00 13:30:00 ity of [facility] 2021-03-21 2021-03-21 Nurse Visit, Vaibhav-Rmchp Nurse [facility] 1.2 .[id number] Univers 13:09:39 13:20:53 Visit Mary Conklin [employer] [id number] ity [facility] [id number] Reji as MATERNAL [id number] [facility] & CHILD [address] [place] [address] 2020-12-27 2020-12-27 [facility] [id number] Univers 08:20:57 08:55:49 Visit Eliza Mcclain [employer] [id number] ity [facility] [id number] Reji as MATERNAL [id number] [facility] & [address] 2020-12-27 2020-12-27 Outpatient R ANDREE [facility] [id number] Univers 08:15:00 08:15:00 ELIZA ity o f [facility] 2020-12-24 2020-12-24 Patient Luis Miguel [facility] [id number] Univers 00:00:00 00:00:00 Outreach Jaskaran SANCHEZ [id number] i ty [facility] [id number] [place] [id number] [address] 2020-07-22 2020-07-22 Outpatient R ANDREE [facility] [id number] Univers 15:15:00 15:15:00 ELIZA ity o f [facility] 2020-07-16 2020-07-16 [facility]phone [facility] [id number] Univers 00:00:00 00:00:00 Suresh Kaiser [employer] [id number] ity [facility] [id number] Reji as MATERNAL [phone] [facility] & [address] 2020-07-15 2020-07-15 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 [id number] Univers 13:21:57 13:36:59 Visit Mary Conklin Nilo [employer] [id number] ity of [facility] [id number] Reji as MATERNAL [id number] Med ical & CHILD [address] [place] [address] 2020-07-11 2020-07-11 Out[facility] [id number] Univers 14:15:00 14:15:00 ROSNDA ity o f [facility] 2020-07-11 2020-07-11 Telephone [facility] [id number] Univers 00:00:00 00:00:00 Rosnda R [employer] [id number] ity of [facility] [id number] Reji as MATERNAL [id number] [facility] & CHILD [address] [place] [address] 2020-07-10 2020-07-10 Out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 [id number] Univers 13:15:20 13:30:20 Visit Mary Conklin Nilo [employer] [id number] ity of REG[facility]AL [id number] Reji as MATERNAL [id number] [facility] & CHILD [address] [place] [address] 2020-07-04 2020-07-04 Telephone [facility] [id number] Univers 00:00:00 00:00:00 Chanelmikea R [employer] [id number] ity of [facility] [id number] Reji as MATERNAL [id number] [facility] & CHILD [address] [place] [address] 2020-07-03 2020-07-03 Outpatient P [facility] [id number] Univers 15:15:00 15:15:00 ity of 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 114 [id number] Univers 12:55:36 13:02:54 Visit Eliza Candelario [employer] [id number]. 10 ity of [facility] [id number] Reji as MATERNAL [phone] [facility] & CHILD [address] [place] [address] 2020-07-03 2020-07-03 Outpatient R ANDREE [facility] [id number] Univers 13:00:00 13:00:00 ELIZA diamond [facility] 2020-06-27 2020-06-27 [facility]phone [facility] [id number] Univers 00:00:00 00:00:00 Suresh Kaiser [employer] [id number] ity [facility] [id number] Reji as MATERNAL [id number] [facility] & [address] 2020-06-26 2020-06-26 Office [facility] [id number] Univers 15:32:28 16:17:37 Visit Suresh Kaiser [employer] [id number] ity of [facility] 4..[id number] Reji as MATERNAL [id number] [address] 2020-06-26 2020-06-26 Outpatient R ROSEMARY [facility] [id number] Univers 15:00:00 15:00:00 SURESH diamond [facility] 2020-06-25 2020-06-25 Outpatient R KATERIN [facility] [id number] Univers 14:15:00 14:15:00 MARY melchor [facility] 2020-06-11 2020-06-11 Outpatient R ANDREE [facility] [id number] Univers 09:00:00 09:00:00 ELIZA diamond [facility] 2020-05-24 2020-05-24 [facility] 1.2.840.114 [id number] Univers 00:00:00 00:00:00 Eliza Mcclain [employer] 350.1.13.10 ity of REGIONAL 4.2.7.2.686 Reji as MATERNAL [id number] Med ical & CHILD [address] [place] [address] 2020-05-15 2020-05-15 Outpatient R [facility] [id number] Univers 10:30:00 10:30:00 ity of [facility] 2020-05-14 2020-05-14 Telephone [facility] 1.2.840.114 [id number] Univers 00:00:00 00:00:00 Eliza Mcclain [employer] 350.1.13.10 ity of REGIONAL 4.2.7.2.686 Reji as MATERNAL [phone] Med ical & CHILD [address] [place] [address] 2020-05-13 2020-05-13 Initial [facility] [id number] Univers 09:59:56 16:40:43 Eliza Mcclain [employer] 350.1.13.10 ity of Visit REGIONAL 4.2.7.2.686 Reji as MATERNAL [id number] Med ical & CHILD [address] [place] [address] 2020-05-13 2020-05-13 Outpatient R [facility] [id number] Univers 10:00:00 10:00:00 ELIZA melchor o f [facility] 2020-05-08 2020-05-08 [facility] 1.2.840.114 [id number] Univers 00:00:00 00:00:00 Mary Ames [employer] 350.1.13.10 it y of REGIONAL 4.2.7.2.686 Reji as MATERNAL [id number] Med ical & CHILD [address] [place] [address] 2020-04-02 2020-04-02 Nurse Visit, Ang-Rmchp Nurse [facility] 1.2 .840.114 [id number] Univers 13:10:14 13:47:23 Visit Mary Conklin [employer] 350.1.13.10 ity of REGIONAL 4.2.7.2.686 Reji as MATERNAL [phone] Med ical & CHILD [address] [place] [address] 2020-04-02 2020-04-02 Outpatient R [facility] [id number] Univers 13:00:00 13:00:00 ity [facility] 2020-04-02 2020-04-02 Orders Doctor VIRGIE 1.2.840.114 [id number] Univers 00:00:00 00:00:00 Only Unassigned, GINA 350.1.13.10 ity of [place] [facility] 4.2.7.2.686 Reji as [id number] [address] 2020-03-25 2020-03-25 [facility] [id number] Univers 15:00:00 15:00:00 ELIZA jill o f [facility] 2019-12-22 2019-12-22 Office [facility] [id number] Univers 14:45:04 15:28:27 Visit Mary Ames [employer] 350.1.13.10 it y of [facility] 4.2.7.2.686 Reji as MATERNAL [id number] [facility] & [address] 2019-12-22 2019-12-22 [facility] [id number] Univers 15:00:00 15:00:00 MARY melchor of [facility] 2019-12-22 2019-12-22 Orders Doctor VIRGIE 1.2.840.114 [id number] Univers 00:00:00 00:00:00 Only Unassigned, GINA 350.1.13.10 [facility] 4.2.7.2.686 Reji as [id number] [address] 2019-12-15 2019-12-15 Telephone [facility] 1.2.840.114 [id number] Univers 00:00:00 00:00:00 Mary Ames [employer] 350.1.13.10 it y of [facility] 4.2.7.2.686 Reji as MATERNAL [phone] [facility] & [address] 2017-12-16 2017-12-16 Emergency nullFlavo [facility] [id number] Memoria 05:02:00 09:24:00 geovanni Teresa 67 [facility] 2017-12-16 2017-12-16 Emergency nullFlavo [facility] [id number] Memoria 05:02:00 09:24:00 geovanni Teresa 67 [facility] 2017-12-16 2017-12-16 Outpatient [facility] [id number] 00:02:00 04:24:00 Martha Chi 67 Results Test Description Test Time Test Comments Results Result Comments Source POCT TEST 2021-06-05 20:34:00 Test Item Value Reference Range Interpretation Comme nts POCT PREG (test code = 1605) Negative On board controls acceptable with C Line (test code = 3574) Yes POCT PREG LOT # (test code = 3575) POCT PREG TEST DATE (test code = 3576) [id number] 20:34:00 Test Item Value Reference Range Interpretation Comments POCT PREG (test code = 1605) Negative On board controls acceptable with C Yes Line (test code = 3574) POCT PREG LOT # (test code = 3575) PO[facility] PREG TEST DATE (test code = 3576[id number] 20:34:00 Test Item Value Reference Range Interpretation Comments POCT PREG (test code = 1605) Negative On board controls acceptable with C Yes Line (test code = 3574) POCT PREG LOT # (test code = 3575) POCT PREG TEST DATE (test code = 3576) [facility] [id number] 20:34:00 Test Item Value Reference Range Interpretation Comments POCT PREG (test code = 1605) Negative On board controls acceptable with C Yes Line (test code = 3574) POCT PREG LOT # (test code = 3575) POCT PREG TEST DATE (test code = 3576) [facility] [id number] 15:28:00 Test Item Value Reference Range Interpretation Comments POCT PREG (test code = 1605) Negative On board controls acceptable with C Yes Line (test code = 3574) POCT PREG LOT # (test code = 3575) POCT PREG TEST DATE (test code = 3576) [facility] [id number] 15:28:00 Test Item Value Reference Range Interpretation Comments POCT PREG (test code = 1605) Negative On board controls acceptable with C Yes Line (test code = 3574) POCT PREG LOT # (test code = 3575) POCT PREG TEST DATE (test code = 3576) [facility] URINALYSIS W/O SPECIFIC [id number] 15:27:00 Test Item Value Reference Range Interpretation Comments POCT PH U (test code = 3254) 5 mg/dl 5-8 POCT U LEUK EST (test code = negative Negative - Negative 3263) POCT U NIT (test code = 3262) negative Negative - Negative POCT U PROT (test code = 3259) trace Negative - Negative POCT U GLU (test code = 3256) negative Negative - Negative POCT U KETONE (test code = 3258) negative Negative - Negative POCT U BLD (test code = 3257) negative Negative - Negative [facility] URINALYSIS W/O SPECIFIC [id number] 15:27:00 Test Item Value Reference Range Interpretation Comments POCT PH U (test code = 3254) 5 mg/dl 5-8 POCT U LEUK EST (test code = negative Negative - Negative 3263) POCT U NIT (test code = 3262) negative Negative - Negative POCT U PROT (test code = 3259) trace Negative - Negative POCT U GLU (test code = 3256) negative Negative - Negative POCT U KETONE (test code = 3258) negative Negative - Negative POCT U BLD (test code = 3257) negative Negative - Negative [facility] [id number] 13:34:00 Test Item Value Reference Range Interpretation Comments POCT PREG (test code = 1605) Negative On board controls acceptable with C Yes Line (test code = 3574) POCT PREG LOT # (test code = 3575) POCT PREG TEST DATE (test code = 3576) [facility] [id number] 13:34:00 Test Item Value Reference Range Interpretation Comments POCT PREG (test code = 1605) Negative On board controls acceptable with C Yes Line (test code = 3574) POCT PREG LOT # (test code = 3575) POCT PREG TEST DATE (test code = 3576) [facility] BETA HCG [id number] 05:36:00 Test Item Value Reference Range Interpretation Comments BETA HCG (test See_Comment [Automated m essage] code = The system Break30 [id number]) generated this result transmit jeff reference range : Non- fe male and male patien ts: <5 mIU/mL. The reference range was not used to interpret this result as normal/abnormal . MOJGAN (test code Gestational Age ? ? = MOJGAN) ?Range (mIU/mL) 1-10 ?Weeks ?[id number] Weeks ?86337-34722457-23 Weeks ?8567-53199000-55 Weeks ?1531-803435 Biotin has been reported to cause a negative bias, interpret results relative to patient's use of biotin. [facility] BETA HCG [id number] 05:36:00 Test Item Value Reference Range Interpretation Comments BETA HCG (test See_Comment [Automated m essage] code = The system Break30 [id number]) generated this result transmit jeff reference range : Non- fe male and male patien ts: <5 mIU/mL. The reference range was not used to interpret this result as normal/abnormal . MOJGAN (test code Gestational Age ? ? = MOJGAN) ?Range (mIU/mL) 1-10 ?Weeks ?[id number] Weeks ?43066-52080064-96 Weeks ?8506-96288548-97 Weeks ?1531-561713 Biotin has been reported to cause a negative bias, interpret results relative to patient's use of biotin. [facility] [id number] 21:18:00 Test Item Value Reference Range Interpretation Comments POCT PREG (test code = 1605) Positive On board controls acceptable with C Yes Line (test code = 3574) POCT PREG LOT # (test code = 3575) POCT PREG TEST DATE (test code = 3576) [facility] [id number] 21:18:00 Test Item Value Reference Range Interpretation Comments POCT PREG (test code = 1605) Positive On board controls acceptable with C Yes Line (test code = 3574) POCT PREG LOT # (test code = 3575) POCT PREG TEST DATE (test code = 3576) [facility] URINALYSIS W/O SPECIFIC [id number] 15:11:00 Test Item Value Reference Range Interpretation Comments POCT PH U (test code = 3254) 5 mg/dl 5-8 POCT U LEUK EST (test code = Trace Negative - Negative 3263) POCT U NIT (test code = 3262) Neg Negative - Negative POCT U PROT (test code = 3259) Trace Negative - Negative POCT U GLU (test code = 3256) Neg Negative - Negative POCT U KETONE (test code = 3258) None Negative - Negative POCT U BLD (test code = 3257) Large Negative - Negative [facility] URINALYSIS W/O SPECIFIC [id number] 15:11:00 Test Item Value Reference Range Interpretation Comments POCT PH U (test code = 3254) 5 mg/dl 5-8 POCT U LEUK EST (test code = Trace Negative - Negative 3263) POCT U NIT (test code = 3262) Neg Negative - Negative POCT U PROT (test code = 3259) Trace Negative - Negative POCT U GLU (test code = 3256) Neg Negative - Negative POCT U KETONE (test code = 3258) None Negative - Negative POCT U BLD (test code = 3257) Large Negative - Negative [facility] URINALYSIS W/O SPECIFIC [id number] 15:11:00 Test Item Value Reference Range Interpretation Comments POCT PH U (test code = 3254) 5 mg/dl 5-8 POCT U LEUK EST (test code = Trace Negative - Negative 3263) POCT U NIT (test code = 3262) Neg Negative - Negative POCT U PROT (test code = 3259) Trace Negative - Negative POCT U GLU (test code = 3256) Neg Negative - Negative POCT U KETONE (test code = 3258) None Negative - Negative POCT U BLD (test code = 3257) Large Negative - Negative [facility] URINALYSIS W/O SPECIFIC [id number] 15:11:00 Test Item Value Reference Range Interpretation Comments POCT PH U (test code = 3254) 5 mg/dl 5-8 POCT U LEUK EST (test code = Trace Negative - Negative 3263) POCT U NIT (test code = 3262) Neg Negative - Negative POCT U PROT (test code = 3259) Trace Negative - Negative POCT U GLU (test code = 3256) Neg Negative - Negative POCT U KETONE (test code = 3258) None Negative - Negative POCT U BLD (test code = 3257) Large Negative - Negative [facility] [id number] 15:09:00 Test Item Value Reference Range Interpretation Comments POCT PREG (test code = 1605) Positive On board controls acceptable with C Yes Line (test code = 3574) POCT PREG LOT # (test code = 3575) POCT PREG TEST DATE (test code = 357) [facility] URINALYSIS W/O SPECIFIC [id number] 15:09:00 Test Item Value Reference Range Interpretation Comments POCT PH U (test code = 3254) 5 mg/dl 5-8 POCT U LEUK EST (test code = Trace Negative - Negative 3263) POCT U NIT (test code = 3262) Neg Negative - Negative POCT U PROT (test code = 3259) Trace Negative - Negative POCT U GLU (test code = 3256) Neg Negative - Negative POCT U KETONE (test code = 3258) None Negative - Negative POCT U BLD (test code = 3257) Neg Negative - Negative [facility] [id number] 15:09:00 Test Item Value Reference Range Interpretation Comments POCT PREG (test code = 1605) Positive On board controls acceptable with C Yes Line (test code = 3574) POCT PREG LOT # (test code = 3575) POCT PREG TEST DATE (test code = 357) [facility] URINALYSIS W/O SPECIFIC [id number] 15:09:00 Test Item Value Reference Range Interpretation Comments POCT PH U (test code = 3254) 5 mg/dl 5-8 POCT U LEUK EST (test code = Trace Negative - Negative 3263) POCT U NIT (test code = 3262) Neg Negative - Negative POCT U PROT (test code = 3259) Trace Negative - Negative POCT U GLU (test code = 3256) Neg Negative - Negative POCT U KETONE (test code = 3258) None Negative - Negative POCT U BLD (test code = 3257) Neg Negative - Negative [facility] [id number] 15:09:00 Test Item Value Reference Range Interpretation Comments POCT PREG (test code = 1605) Positive On board controls acceptable with C Yes Line (test code = 3574) POCT PREG LOT # (test code = 3575) POCT PREG TEST DATE (test code = 357) [facility] URINALYSIS W/O SPECIFIC [id number] 15:09:00 Test Item Value Reference Range Interpretation Comments POCT PH U (test code = 3254) 5 mg/dl 5-8 POCT U LEUK EST (test code = Trace Negative - Negative 3263) POCT U NIT (test code = 3262) Neg Negative - Negative POCT U PROT (test code = 3259) Trace Negative - Negative POCT U GLU (test code = 3256) Neg Negative - Negative POCT U KETONE (test code = 3258) None Negative - Negative POCT U BLD (test code = 3257) Neg Negative - Negative [facility] [id number] 15:09:00 Test Item Value Reference Range Interpretation Comments POCT PREG (test code = 1605) Positive On board controls acceptable with C Yes Line (test code = 3574) POCT PREG LOT # (test code = 3575) POCT PREG TEST DATE (test code = 357) [facility] URINALYSIS W/O SPECIFIC [id number] 15:09:00 Test Item Value Reference Range Interpretation Comments POCT PH U (test code = 3254) 5 mg/dl 5-8 POCT U LEUK EST (test code = Trace Negative - Negative 3263) POCT U NIT (test code = 3262) Neg Negative - Negative POCT U PROT (test code = 3259) Trace Negative - Negative POCT U GLU (test code = 3256) Neg Negative - Negative POCT U KETONE (test code = 3258) None Negative - Negative POCT U BLD (test code = 3257) Neg Negative - Negative [facility] [id number] 18:36:00 Test Item Value Reference Range Interpretation Comments POCT PREG (test code = 1605) Negative On board controls acceptable with C Yes Line (test code = 3574) POCT PREG LOT # (test code = 3575) POCT PREG TEST DATE (test code = 3576) [facility] [id number] 19:54:00 Test Item Value Reference Range Interpretation Comments POCT PREG (test code = 1605) Negative On board controls acceptable with C Yes Line (test code = 3574) POCT PREG LOT # (test code = 3575) POCT PREG TEST DATE (test code = 3576) [facility] [id number] 19:54:00 Test Item Value Reference Range Interpretation Comments POCT PREG (test code = 1605) Negative On board controls acceptable with C Yes Line (test code = 3574) POCT PREG LOT # (test code = 3575) POCT PREG TEST DATE (test code = 3576) [facility] 05:28[facility]44 Test Item Value Reference Range Interpretation Comments Basophils (test code = 0.4 See_Comment [Aut omated message] The Basophils) system which ge nerated this result tra nsmitted reference range : <=1.0. The reference r edilberto was not used to int erpret this result as normal/abnormal . [id number] 05:28:44 Test Item Value Reference Range Interpretation Comments Etoh (%) (test code = Etoh (%)) no gt [facility] [id number] 05:28:44 Test Item Value Reference Range Interpretation Comments Ethanol Lvl (test code = Ethanol Lvl) no gt [facility]2018-03-15 05:28:44 Test Item Value Reference Range Interpretation Comments eGFR (test code = eGFR) 64 [facility]2018-03-15 05:28:44 Test Item Value Reference Range Interpretation Comments Chloride Lvl (test code = Chloride Lvl) 104 95-109 [facility]2018-03-15 05:28:44 Test Item Value Reference Range Interpretation Comments Glucose Lvl (test code = Glucose Lvl) 87 70-99 [facility]2018-03-15 05:28:44 Test Item Value Reference Range Interpretation Comments Sodium Lvl (test code = Sodium Lvl) 138 135-145 [facility]2018-03-15 05:28:44 Test Item Value Reference Range Interpretation Comments Creatinine Lvl (test code = Creatinine 0.67 0.50-1.40 Lvl) [facility]2018-03-15 05:28:44 Test Item Value Reference Range Interpretation Comments Potassium Lvl (test code = Potassium 3.3 3.5-5.1 Lvl) [facility]2018-03-15 05:28:44 Test Item Value Reference Range Interpretation Comments BUN (test code = BUN) 12 7-22 [facility]2018-03-15 05:28:44 Test Item Value Reference Range Interpretation Comments Calcium Lvl (test code = Calcium Lvl) 9.1 8.5-10.5 [facility]2018-03-15 05:28:44 Test Item Value Reference Range Interpretation Comments CO2 (test code = CO2) 25 24-32 [facility]2018-03-15 05:28:44 Test Item Value Reference Range Interpretation Comments AGAP (test code = AGAP) 12.3 10.0-20.0 [facility]2018-03-15 05:28:44 Test Item Value Reference Range Interpretation Comments Lactic Acid Lvl (test code = Lactic 1.7 0.5-2.2 Acid Lvl) [facility] Hos[id number] 05:28:44 Test Item Value Reference Range Interpretation Comments hCG Tot (test code = hCG Tot) [address] [facility] H[id number] 05:28:44 Test Item Value Reference Range Interpretation Comments Estimated % Lysis Rapid 3.6 See_Comment [Au tomated message] The (test code = Estimated syste m which generated % Lysis Rapid) this result t ransmitted reference range : <=7.5. The reference r edilberto was not used to int erpret this result as normal/abnormal . [facility] H[id number] 05:28:44 Test Item Value Reference Range Interpretation Comments G-value Rapid (test code = G-value 9.3 5.0-11.6 Rapid) [facility] HospitalQtueerzBVWHFYDJQL0292-63-89 05:28:44 Test Item Value Reference Range Interpretation Comments Angle Rapid (test code = Angle 75 degrees 64-80 Rapid) [facility] H[id number] 05:28:44 Test Item Value Reference Range Interpretation Comments Lymphocytes (test code = Lymphocytes) 17.2 20.0-40.0 [place] [address]-03-15 05:28:44 Test Item Value Reference Range Interpretation Comments Max Amplitude Rapid (test code = Max 65 mm 52-71 Amplitude Rapid) [place] [address]-03-15 05:28:44 Test Item Value Reference Range Interpretation Comments Split Point Rapid (test code = Split 0.5 min Point Rapid) [address]03-15 05:28:44 Test Item Value Reference Range Interpretation Comments R-time Rapid (test code = R-time 0.6 min 0.4-0.7 Rapid) [place] [address]-03-15 05:28:44 Test Item Value Reference Range Interpretation Comments K-time Rapid (test code = K-time 1.2 min 0.6-2.3 Rapid) [place] [address]-03-15 05:28:44 Test Item Value Reference Range Interpretation Comments ACT (TEG) Rapid (test code = ACT (TEG) 105 s 86-118 Rapid) [place] [address]-03-15 05:28:44 Test Item Value Reference Range Interpretation Comments Hgb (test code = Hgb) 12.5 12.0-16.0 [place] [address]-03-15 05:28:44 Test Item Value Reference Range Interpretation Comments WBC (test code = WBC) 10.7 3.7-10.4 [place] [address]-03-15 05:28:44 Test Item Value Reference Range Interpretation Comments RBC (test code = RBC) 4.62 4.20-5.40 [place] [address]-03-15 05:28:44 Test Item Value Reference Range Interpretation Comments MCV (test code = MCV) 79.5 80.0-98.0 [place] [address]-03-15 05:28:44 Test Item Value Reference Range Interpretation Comments RDW (test code = RDW) 15.9 11.5-14.[address] [facility] Hospit[id number] 05:28:44 Test Item Value Reference Range Interpretation Comments Segs (test code = Segs) 76.3 45.0-75.[address] [facility] H[id number] 05:28:44 Test Item Value Reference Range Interpretation Comments Platelet (test code = Platelet) 262 133-[address] [facility] Hos[id number] 05:28:44 Test Item Value Reference Range Interpretation Comments MCHC (test code = MCHC) 34.0 32.0-36.[address] [facility] HospitalGowgtbgLPTDXARAVX3639-20-81 05:28:44 Test Item Value Reference Range Interpretation Comments MCH (test code = MCH) 27.0 pg 27.0-31.[address] [facility] HospitalLtavnfbKGLRNWNYWO5915-80-21 05:28:44 Test Item Value Reference Range Interpretation Comments Hct (test code = Hct) 36.8 36.0-48.[address] [facility] HospitalFifidfdVTONGGGDXV9159-35-06 05:28:44 Test Item Value Reference Range Interpretation Comments MPV (test code = MPV) 8.4 7.4-10.[address] [facility] HospitalAjotsjlAGBLNFIXWU2111-17-49 05:28:44 Test Item Value Reference Range Interpretation Comments Eosinophils (test code = 0.3 See_Comment [A utomated message] The Eosinophils) system which ge nerated this result tra nsmitted reference range : <=4.0. The reference r edilberto was not used to int erpret this result as normal/abnormal . [facility]2018-03-15 05:28:44 Test Item Value Reference Range Interpretation Comments eGFR (test code = eGFR) 64 [facility]2018-03-15 05:28:44 Test Item Value Reference Range Interpretation Comments Chloride Lvl (test code = Chloride Lvl) 104 95-109 [facility]2018-03-15 05:28:44 Test Item Value Reference Range Interpretation Comments Glucose Lvl (test code = Glucose Lvl) 87 70-99 [facility]2018-03-15 05:28:44 Test Item Value Reference Range Interpretation Comments Sodium Lvl (test code = Sodium Lvl) 138 135-145 [facility]2018-03-15 05:28:44 Test Item Value Reference Range Interpretation Comments Creatinine Lvl (test code = Creatinine 0.67 0.50-1.40 Lvl) [facility]2018-03-15 05:28:44 Test Item Value Reference Range Interpretation Comments Potassium Lvl (test code = Potassium 3.3 3.5-5.1 Lvl) [place]508-03-15 05:28:44 Test Item Value Reference Range Interpretation Comments BUN (test code = BUN) 12 - [facility]2018-03-15 05:28:44 Test Item Value Reference Range Interpretation Comments Calcium Lvl (test code = Calcium Lvl) 9.1 8.5-10.5 [place] 429508-03-15 05:28:44 Test Item Value Reference Range Interpretation Comments CO2 (test code = CO2) 25 - [facility]2018-03-15 05:28:44 Test Item Value Reference Range Interpretation Comments AGAP (test code = AGAP) 12.3 10.0-20.0 [facility]2018-03-15 05:28:44 Test Item Value Reference Range Interpretation Comments Lactic Acid Lvl (test code = Lactic 1.7 0.5-2.2 Acid Lvl) [facility] HospitalJtaciikLJOHCGXUVQLQK3815-95-82 05:28:44 Test Item Value Reference Range Interpretation Comments hCG Tot (test code = hCG Tot) [address] [facility] HospitalIhdktwhLDZNBDWTUL4837-03-48 05:28:44 Test Item Value Reference Range Interpretation Comments Estimated % Lysis Rapid 3.6 See_Comment [Au tomated message] The (test code = Estimated syste m which generated % Lysis Rapid) this result t ransmitted reference range : <=7.5. The reference r edilberto was not used to int erpret this result as normal/abnormal . [facility] HospitalRjlliujIYQDHDLRDH0935-26-18 05:28:44 Test Item Value Reference Range Interpretation Comments G-value Rapid (test code = G-value 9.3 5.0-11.6 Rapid) [facility] HospitalOrxknhpVKNMZNCAON5937-36-03 05:28:44 Test Item Value Reference Range Interpretation Comments Angle Rapid (test code = Angle 75 degrees 64-80 Rapid) [facility] H[id number] 05:28:44 Test Item Value Reference Range Interpretation Comments Max Amplitude Rapid (test code = Max 65 mm 52-71 Amplitude Rapid) [facility] Hospit[id number] 05:28:44 Test Item Value Reference Range Interpretation Comments Split Point Rapid (test code = Split 0.5 min Point Rapid) [facility] Ho[id number] 05:28:44 Test Item Value Reference Range Interpretation Comments R-time Rapid (test code = R-time 0.6 min 0.4-0.7 Rapid) [facility] HospitalByuyhqpAKDXYZPHVL8861-23-73 05:28:44 Test Item Value Reference Range Interpretation Comments K-time Rapid (test code = K-time 1.2 min 0.6-2.3 Rapid) [facility] HospitalTrdqcdtXYRISRDVZP3457-28-86 05:28:44 Test Item Value Reference Range Interpretation Comments ACT (TEG) Rapid (test code = ACT (TEG) 105 s 86-118 Rapid) [facility] HospitalZwrkseyRSNCPDKJTM7086-22-19 05:28:44 Test Item Value Reference Range Interpretation Comments Hgb (test code = Hgb) 12.5 12.0-16.[address] [facility] HospitalNmwrqtiEBPSLOQYYZ6413-15-81 05:28:44 Test Item Value Reference Range Interpretation Comments WBC (test code = WBC) 10.7 3.7-10.[address] [facility] HospitalImiyovbGJVIDJQHTA4247-68-96 05:28:44 Test Item Value Reference Range Interpretation Comments RBC (test code = RBC) 4.62 4.20-5.[address] [facility] HospitalYcqblevAROPXAZEUQ1071-17-76 05:28:44 Test Item Value Reference Range Interpretation Comments MCV (test code = MCV) 79.5 80.0-98.[address] [facility] HospitalNmienapUGNUNVRXLE5863-39-26 05:28:44 Test Item Value Reference Range Interpretation Comments RDW (test code = RDW) 15.9 11.5-14.[address] [facility] HospitalCjaowgvOMWXMOICLK6342-09-36 05:28:44 Test Item Value Reference Range Interpretation Comments Platelet (test code = Platelet) 262 133-[address] [facility] HospitalXadcdzbIYWMZTIMEJ3934-31-37 05:28:44 Test Item Value Reference Range Interpretation Comments MCHC (test code = MCHC) 34.0 32.0-36.[address] [facility] HospitalMggajesPHPMFYEXKD3485-97-57 05:28:44 Test Item Value Reference Range Interpretation Comments MCH (test code = MCH) 27.0 pg 27.0-31.0 [place] [id number] 05:28:44 Test Item Value Reference Range Interpretation Comments Hct (test code = Hct) 36.8 36.0-48.[address] [facility] HospitalOzpttplUGVEGRVHZK9734-43-57 05:28:44 Test Item Value Reference Range Interpretation Comments MPV (test code = MPV) 8.4 7.4-10.[address] [facility] HospitalMjzznrlAGHARLGZFI3167-94-21 05:28:44 Test Item Value Reference Range Interpretation Comments Lymphocytes (test code = Lymphocytes) 17.2 20.0-40.[address] [facility] HospitalFwqizlmJUGXNYBOKH6722-76-75 05:28:44 Test Item Value Reference Range Interpretation Comments Segs (test code = Segs) 76.3 45.0-75.[address] [facility] HospitalXxxgkksVWDFDSSQJZ0019-16-32 05:28:44 Test Item Value Reference Range Interpretation Comments Eosinophils (test code = 0.3 See_Comment [A utomated message] The Eosinophils) system which ge nerated this result tra nsmitted reference range : <=4.0. The reference r edilberto was not used to int erpret this result as normal/abnormal . [facility] HospitalLygadsvSJQYMQVVBU1445-42-24 05:28:44 Test Item Value Reference Range Interpretation Comments Monocytes (test code = Monocytes) 5.8 2.0-12.[address] [facility] HospitalUakrzejHYYSKBIIMT7822-09-61 05:28:44 Test Item Value Reference Range Interpretation Comments Monocytes # (test code 0.6 See_Comment [Aut omated message] The = Monocytes #) system which generated this result tra nsmitted reference range : <=0.8. The reference r edilberto was not used to int erpret this result as normal/abnormal . [facility] HospitalLcmlfehHZNQBWTLCY5567-05-78 05:28:44 Test Item Value Reference Range Interpretation Comments Lymphocytes # (test code = Lymphocytes 1.8 1.0-5.5 #) [facility] HospitalDybxehqUUUBYXGEBX8986-56-95 05:28:44 Test Item Value Reference Range Interpretation Comments Segs-Bands # (test code = Segs-Bands #) 8.2 1.5-8.[address] HospitalSlvxmkkEQDRDKPWRK0717-10-42 05:28:44 Test Item Value Reference Range Interpretation Comments Basophils (test code = 0.4 See_Comment [Aut omated message] The Basophils) system which ge nerated this result tra nsmitted reference range : <=1.0. The reference r edilberto was not used to int erpret this result as normal/abnormal . [facility] DistrictGjttjylALZLLWQHVX5530-27-66 05:28:44 Test Item Value Reference Range Interpretation Comments Etoh (%) (test code = Etoh (%)) no gt [facility]WCXF0942-87-27 05:28:44 Test Item Value Reference Range Interpretation Comments Ethanol Lvl (test code = Ethanol Lvl) no gt [facility] LakeXcqfdblVBAOHXXZIR6848-85-51 05:28:44 Test Item Value Reference Range Interpretation Comments Monocytes (test code = Monocytes) 5.8 2.0-12.0 [facility] DistrictAeatlxpSKYPOSUUYG2381-29-54 05:28:44 Test Item Value Reference Range Interpretation Comments Monocytes # (test code 0.6 See_Comment [Aut omated message] The = Monocytes #) system which generated this result tra nsmitted reference range : <=0.8. The reference r edilberto was not used to int erpret this result as normal/abnormal . [facility] JrzydjlWLUXWKRPGN7187-76-18 05:28:44 Test Item Value Reference Range Interpretation Comments Lymphocytes # (test code = Lymphocytes 1.8 1.0-5.5 #) [facility] D[id number] 05:28:44 Test Item Value Reference Range Interpretation Comments Segs-Bands # (test code = Segs-Bands #) 8.2 1.5-8.1 [facility] [employer] [id number] 05:24:00 Test Item Value Reference Range Interpretation Comments Antibody Scrn (test Negative (12/16/17 code = Antibody Scrn) 12:24 AM) [facility] [employer] [id number] 05:24:00 Test Item Value Reference Range Interpretation Comments ABO/Rh (test code = ABO/Rh) B POS [facility] [employer] [id number] 05:24:00 Test Item Value Reference Range Interpretation Comments Antibody Scrn (test Negative (12/16/17 code = Antibody Scrn) 12:24 AM) [facility] [employer] [id number] 05:24:00 Test Item Value Reference Range Interpretation Comments ABO/Rh (test code = ABO/Rh) B POS [facility]
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
== END 2022-12-12 18:42 | disposition home or self-care (01) ==
LOC: ER 16:12
DX: Z71.1 Person with feared health complaint in whom no diagnosis is made (principal)
CPT/HCPCS: 99283

== ENCOUNTER 2025-07-31 08:16 | Emergency (ER) | payer OTHER ==
[2025-07-31 10:02] LABS: Absolute Lymphocytes (CBC) 0.9 K/uL (0.7-4.9); Hematocrit 35.3 % (36.0-45.0); Hemoglobin 12.1 g/dL (12.0-15.0); MCH 28.8 pg (27.0-35.0); MCHC 34.3 g/dL (32.0-36.0); MCV 84.0 fL (80-100); MPV 8.3 fL (7.6-11.3); Nucleated RBC Absolute Count 0.0 (0-0); Nucleated Red Blood Cells % 0.0 % (0-0); RBC Red Blood Cell Count 4.21 M/uL (3.86-4.86); White Blood Count 13.20 thou/uL (4.3-10.9)
[2025-07-31 10:10] LABS: Sqamous Epithelial <5 /HPF (None Seen); Urine Crystals Unidentified Few /HPF (None Seen); Urine Culture Reflex Order NOT NEEDED; Urine Microscopic Reflex YN ORDER UMIC; Urine WBC Clump Rare /HPF (None Seen)
[2025-07-31 10:23] LABS: Anion Gap 11.1 mEq/L (5.0-15.0); BUN Blood Urea Nitrogen 16.0 mg/dL (7-18); Glucose Level 98.0 mg/dL (74-106); Potassium 4.1 mEq/L (3.5-5.1)
[2025-07-31] MEDS ORDERED: NA CHLORIDE 0.9% 1,000 ML ONE (10:55)
[2025-07-31] MEDS ORDERED: KETOROLAC 30 MG/ML INJ ONE (10:55)
[2025-07-31 11:27] LABS: White Blood Cell Scan OK (OK)
[2025-07-31 11:28] LABS: Blood Morphology Comment NOT SEEN (NOT SEEN)
--- NOTE | 2025-07-31 11:56 | RAD REPORT ---
EXAMINATION: CT Abdomen Pelvis W Contrast CLINICAL INDICATION: Female, 25 years old. abd pain, pelvis pain TECHNIQUE: CT abdomen and pelvis was performed, after the administration of IV contrast, as per [facility] protocol. Axial, sagittal and coronal reconstructions were obtained. One or more of the following dose reduction techniques were used: Automated exposure control, adjustment of the mA and k V according to patient size, and iterative reconstruction. Unless otherwise specified, incidental findings do not require dedicated imaging follow-up. COMPARISON: No prior exam. FINDINGS: LOWER CHEST: The visualized lung bases are clear. LIVER: Normal in size and contour. No focal lesion. BILIARY SYSTEM: Status post cholecystectomy. SPLEEN: Normal size. No focal lesion. PANCREAS: No mass, ductal dilation, or mikey-pancreatic fluid. ADRENALS: Normal; no mass. KIDNEYS: Normal size and contour. No hydronephrosis. URINARY BLADDER: Unremarkable. GASTROINTESTINAL TRACT: No evidence of free air, obstruction or abscess. Mild free ascites. APPENDIX: Normal appendix. LYMPH NODES: No lymphadenopathy. MUSCULOSKELETAL: No acute or suspicious osseous abnormality. ADDITIONAL FINDINGS: Heterogeneous right adnexal 4.8 x 3.9 cm structure containing cystic components. IMPRESSION: Mild free ascites. Right adnexal complex structure measuring 4.8 cm, could relate to cystic lesion(s) within the ovary, not well characterized. If this is felt to relate to the patient's symptoms, consider additional evaluation by dedicated pelvic ultrasound.
--- NOTE | 2025-07-31 13:14 | RAD REPORT ---
EXAMINATION: US Transvaginal Study Probe, Pelvis Complete, Abdomen Pelvis Scan US CLINICAL INDICATION: Female 25 years old.[facility] now postcoital pain Bed Name: 8 TECHNIQUE: Real-time ultrasonography of the pelvis was performed transvaginally and transabdominally. Color and spectral Doppler evaluation of the ovaries was performed. COMPARISON: No prior exam. FINDINGS: UTERUS AND CERVIX: The uterus measures 9.9 cm in length. The uterus is normal. No masses seen, and no evidence of an intrauterine . Small nabothian cysts at the cervix. The endometrium is normal, 0.7 cm in thickness. RIGHT OVARY: Asymmetrically enlarged with small cystic components or follicles. A heterogeneous perip heral ill-defined 2.3 x 1.7 cm predominantly hyperechoic lesion is also present. The right ovary measures 4.3 x 3.7 x 3.7 cm. Normal color and spectral Doppler evaluation of the right ovary.. LEFT OVARY: Normal The left ovary measures 3.2 x 2.7 x 2.2 cm. Normal color and spectral Doppler evaluation of the left ovary.. FREE FLUID: Layering free fluid with floating echoes in the cul-de-sac and right adnexal region IMPRESSION: Asymmetrically enlarged right ovary with peripheral echogenic 2.3 cm lesion and other smaller cystic components or follicles. This could represent a recently ruptured partially decompressed, or hemorrhagic follicle. Close clinical follow-up and consideration of sonographic follow-up in 6-10 wee ks is recommended to ensure stability or resolution. Free left complex fluid seen in the cul-de-sac and right adnexal region.
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
--- NOTE | 2025-07-31 13:18 | ER ---
Nurse's Notes [facility] Name: Elida Onofre Age: 25 yrs Sex: Female : 2000 Arrival Date: 07/31/2025 Time: 08:16 Bed 8 Private MD: Diagnosis: Other ovarian cyst, right side-ruptured Presentation: 07/31 08:49 Chief complaint: Patient states: she started having lower abdominal pain early this ap3 morning after sex. patient currently rates her pain as a 6/10 but states the pain is worse with urination or having a bowel movement. Coronavirus screen: At this time, the client does not indicate any symptoms associated with coronavirus-19. Ebola Screen: No symptoms or risks identified at this time. Initial Sepsis Screen: Does the patient meet any 2 criteria? No. Patient's initial sepsis screen is negative. Does the patient have a suspected source of infection? No. Patient's initial sepsis screen is negative. Risk Assessment: Do you want to hurt yourself or someone else? Patient reports no desire to harm self or others. Onset of symptoms was July 31, 2025. 08:49 Method Of Arrival: Ambulatory ap3 08:49 Acuity: GAY 3 ap3 Triage Assessment: 08:51 General: Appears in no apparent distress. Behavior is calm, cooperative, appropriate ap3 for age. Pain: Complains of pain in suprapubic area, right lower quadrant and left lower quadrant Pain currently is 6 out of 10 on a pain scale. Neuro: Level of Consciousness is awake, alert, obeys commands, Oriented to person, place, time, situation, Appropriate for age. Cardiovascular: Patient's skin is warm and dry. Respiratory: Airway is patent Respiratory effort is even, unlabored, Respiratory pattern is regular, symmetrical. GI: Reports lower abdominal pain. : Reports vaginal bleeding that is. 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 - Infectious Disease History:: Denies. - Social history:: Smoking status: Patient denies any tobacco usage or history of. Screenin:52 [facility] ED Fall Risk Assessment (Adult) History of falling in the last 3 months, ap3 including since admission No falls in past 3 months (0 pts) Confusion or Disorientation No (0 pts) Intoxicated or Sedated No (0 pts) Impaired Gait No (0 pts) Mobility Assist Device Used No (0 pt) Altered Elimination No (0 pt) Score/Fall Risk Level 0 - 2 = Low Risk Oriented to surroundings, Maintained a safe environment, Educated pt \T\ family on fall prevention, incl call for assistance when getting out of bed, Assessed \T\ reinforced patient's understanding of fall precautions, Hourly rounding (assess needs \T\ fall precautionary measures) done, Used ambulatory aids as needed (educated on \T\ assisted with). Abuse screen: Denies threats or abuse. Nutritional screening: No deficits noted. Tuberculosis screening: No symptoms or risk factors identified. Assessment: 11:11 General: Appears in no apparent distress. uncomfortable, Behavior is calm, cooperative, zm appropriate for age. Pain: Complains of pain in suprapubic area Pain currently is 6 out of 10 on a pain scale. Aggravated by movement. Neuro: Level of Consciousness is awake, alert, obeys commands, Oriented to person, place, time, situation. Cardiovascular: Heart tones S1 S2 present Patient's skin is warm and dry. Respiratory: Airway is patent Respiratory effort is even, unlabored, Respiratory pattern is regular, symmetrical. GI: Abdomen is flat, non-distended, Bowel sounds present X 4 quads. Abd is soft X 4 quads Abdomen is tender to palpation in suprapubic area Reports cramping, Patient currently denies nausea, vomiting. : Reports vaginal bleeding that is spotty, Denies burning with urination, urinary frequency, Patient is sexually active. 12:53 Reassessment: Patient appears in no apparent distress at this time. No changes from hb previously documented assessment. Patient and/or family updated on plan of care and expected duration. Pain level reassessed. Patient is alert, oriented x 3, equal unlabored respirations, skin warm/dry/pink. 13:35 Reassessment: Patient appears in no apparent distress at this time. No changes from zm previously documented assessment. Patient and/or family updated on plan of care and expected duration. Pain level reassessed. Patient is alert, oriented x 3, equal unlabored respirations, skin warm/dry/pink. Vital Signs: 08:49 BP 107 / 65; Pulse 69; Resp 18; Temp 98.2; Pulse Ox 100% ; Weight 86.18 kg; Height 5 ap3 ft. 6 in. ; Pain 6/10; 11:17 BP 117 / 66; Pulse 56; Resp 16; Temp 98.2; Pulse Ox 100% on R/A; Pain 6/10; zm 13:35 BP 103 / 53; Pulse 58; Resp 16; Temp 98.1; Pulse Ox 100% on R/A; Pain 4/10; zm 08:49 Body Mass Index 30.67 (86.18 kg, 167.64 cm) ap3 08:49 Pain Scale: Adult ap3 11:17 Pain Scale: Adult zm 13:35 Pain Scale: Adult zm Devin Coma Score: 11:17 Eye Response: spontaneous(4). Motor Response: obeys commands(6). Verbal Response: zm oriented(5). Total: 15. 13:35 Eye Response: spontaneous(4). Motor Response: obeys commands(6). Verbal Response: zm oriented(5). Total: 15. ED Course: 08:18 Patient arrived in ED. mr 08:20 Connie Mcgregor PA-C is PHCP. sb4 08:20 Riley Goode DO is Attending Physician. sb4 08:50 Triage completed. ap3 08:52 Arm band placed on right wrist. ap3 09:57 CBC with Diff Sent. bc6 09:57 BMP Sent. bc6 09:57 Initial lab(s) drawn, by ok, sent to lab. Urine collected: clean catch specimen, catherine bc6 colored. Inserted saline lock: 20 gauge in left antecubital area, using aseptic technique. Blood collected. Flushed with 10 mL NS. 10:42 CT Abd/Pelvis - IV Contrast Only In Process Unspecified. EDMS 11:00 Jordyn Osman, RN is Primary Nurse. zm 11:15 Patient has correct armband on for positive identification. Bed in low position. Call zm light in reach. Side rails up X 1. Provided Education on: call light use. Client placed on continuous cardiac and pulse oximetry monitoring. NIBP monitoring applied. Door closed. Noise minimized. Lights dimmed. Warm blanket given. Verbal reassurance given. 12:29 Pelvis Complete In Process Unspecified. EDMS 12:30 Transvaginal Study (probe) In Process Unspecified. EDMS 12:30 Abdomen Pelvis Scan\E\US In Process Unspecified. EDMS 13:35 No provider procedures requiring assistance completed. IV discontinued, intact, zm bleeding controlled, No redness/swelling at site. Pressure dressing applied. Administered Medications: 11:10 Drug: NS 0.9% IV 1000 ml IV at 1000 ml once; to be given as a bolus over 60 minutes zm Route: IV; Rate: 1000 ml; Site: left antecubital; 13:48 Follow up: IV Status: Completed infusion; IV Intake: 1000ml zm 13:48 Follow up: Response: No adverse reaction zm 11:10 Drug: Ketorolac IVP 15 mg IVP once Route: IVP; Site: left antecubital; zm 13:47 Follow up: Response: No adverse reaction zm Medication: 11:15 VIS not applicable for this client. zm Intake: 13:48 IV: 1000ml; Total: 1000ml. Outcome: 13:17 Discharge ordered by . jose 13:35 Discharged to home ambulatory, 13:35 Condition: stable 13:35 Discharge instructions given to patient, Instructed on discharge instructions, follow up and referral plans. no drinking with medication, medication usage, safe sex practices, safety practices, Demonstrated understanding of instructions, follow-up care, medications, Prescriptions given X 1, 13:48 Patient left the ED. Signatures: Dispatcher [employer] EDNV Channing Alida, Reg Reg mr GarciaTessa, RN Demetra Medina RN RN ap3 Jordyn Osman RN RN zm Brown, Sophia, PAAngelica PAAngelica [email or web address] Ema [address] [facility]
[2025-07-31 16:10] VITALS: O2SAT 100
[2025-07-31 16:21] VITALS: BP 103/53; TEMP 98.1
== END 2025-07-31 13:48 | disposition home or self-care (01) ==
LOC: ER 08:16
DX: N83.291 Other ovarian cyst, right side (principal)
CPT/HCPCS: 96361; 85025; 81001; 80048; 36415; 81025; 74177; 93975; 76856; 76830; 96374; 99284; Q9967; J1885; J7030